=== PATIENT | female | born 1985 | race Caucasian/White ===

== ENCOUNTER 2023-08-14 16:03 | Outpatient (CLI) | payer BC, SELFPAY | END 2023-08-14 16:04 | disposition home or self-care (01) | PROVIDERS: PCP Family Medicine; Visit Provider Family Medicine | DX: Z00.00 Encounter for general adult medical examination without abnormal findings (principal); E66.9 Obesity, unspecified; R53.83 Other fatigue; K50.90 Crohn's disease, unspecified, without complications; F41.9 Anxiety disorder, unspecified; Z13.6 Encounter for screening for cardiovascular disorders | CPT/HCPCS: 80053; 80061; 82306; 84443 ==

== ENCOUNTER 2024-01-22 16:42 | Outpatient (CLI) | payer BC, SELFPAY ==
--- OUTSIDE RECORDS SUMMARY | 2024-01-22 16:44 | XMS_ITS | Encounter Summary ---
Author Organization [facility] er Address [address] [place] [address] Care Team Providers Care Groundman Name Role Phone Mary Tipton MD Primary Care Provider Reason for Visit * Reason Comments Med Refill Encounter Details Date Type Department Care Team (Late st Contact Info) Description 01/01/[address] [id number] Mary Tipton MD [address] [place] [address] [phone] Generalized anxiety disorder with panic attacks Social History Tobacco Use Types Packs/Day Years Used Date Smoking Tobacco: Former Cigarettes Q uit: 08/13/2016 Smokeless Tobacco: Never Alcohol Use Standard Drinks/Week Comments Yes 0 (1 standard drink = 0.6 oz pur e alcohol) alcoholic cider 1-2 x month Humiliation, Afraid, Rape, and Kick questionnair e Answer Date Recorded Within the last year, have y ou been afraid of your partner or ex-partner? No 06/26/2022 Within the last year, have y ou been humiliated or emotionally abused in other ways by your partner or ex-partner? No Within the last year, have y ou been kicked, hit, slapped, or otherwise physically hurt by your partner or ex-partner? No 06/26/2022 Within the last year, have y ou been raped or forced to have any kind of sexual activity by your partner or ex-partner? No 06/26/2022 Social Connection and Isolat ion Panel [NHANES] Answer Date Recorded In a typical week, how many times do you talk on the phone with family, friends, or neighbors? Twice a week 06/26/2022 How often do you get togethe r with friends or relatives? Twice a week 06/26/2022 How often do you attend chur ch or nondenominational services? More than 4 times per year 06/26/2022 Do you belong to any clubs o r organizations such as baptist groups, unions, fraternal or athletic groups, or school groups? No 06/26/2022 How often do you attend meet ings of the clubs or organizations you belong to? Never 06/26/2022 Are you , , di vorced, , never , or living with a partner? 06/26/2022 AUDIT-C Answer Date Recorded Q1: How often do you have a drink containing alc ohol? Monthly or less 06/26/2022 Q2: How many drinks containi ng alcohol do you have on a typical day when you are drinking? 3 or 4 06/26/2022 Q3: How often do you have si x or more drinks on one occasion? Less than monthly 06/26/2022 Overall Financial Resource Strain (CARDIA) Answe r Date Recorded How hard is it for you to pa y for the very basics like food, housing, medical care, and heating? Somewhat hard 06/26/2022 PHQ-2 Answer Date Recorded PHQ-9 Total Score 5 02/12/2023 [facility] Answer Date Recorded Do you feel stress - tense, restless, nervous, or anxious, or unable to sleep at night because your mind is troubled all the time - these days? Rather much 06/26/2022 Exercise Vital Sign Answer Date Recorde d On average, how many days pe r week do you engage in moderate to strenuous exercise (like a brisk walk)? 5 days 06/26/2022 On average, how many minutes do you engage in exercise at this level? 30 min 06/26/2022 Hunger Vital Sign Answer Date Recorded Within the past 12 months, y ou worried that your food would run out before you got the money to buy more. Never true 06/26/20 22 Within the past 12 months, t he food you bought just didn't last and you didn't have money to get more. Never true 06/26/2022 PRAPARE - Transportation Answer Date Re corded In the past 12 months, has l ack of transportation kept you from medical appointments or from getting medications? No 06/13 In the past 12 months, has l ack of transportation kept you from meetings, work, or from getting things needed for daily living? No 06/26/2022 Housing Stability Vital Sign Answer Bridger e Recorded In the last 12 months, was t here a time when you were not able to pay the mortgage or rent on time? Yes 06/26/2022 Number of Places Lived in the Last Year Not on f ile 06/26/2022 In the last 12 months, was t here a time when you did not have a steady place to sleep or slept in a mcfp (including now)? No 06/26/2022 Education Answer Date Recorded What is the highest level of school you have completed or the highest degree you have received? Associate degree: academic program 04/22/2021 Sex and Gender Information Value Date Recorded Sex Assigned at Female 10/03/2021 7:57 AM LICENSED MENTAL HEALTH COUNSELOR Gender Identity Female 10/03/2021 7:57 AM LICENSED MENTAL HEALTH COUNSELOR Sexual Orientation Straight 10/03/2021 7: 57 AM LICENSED MENTAL HEALTH COUNSELOR documented as of this encounter Miscellaneous Notes * Telephone Encounter - Neha Gill - 01/09/2024 10:08 AM CDT LM * Telephone Encounter - Neha Gill - 01/04/2024 12:39 PM CDT LM to schedule annual with labs prior * Telephone Encounter - Gretchen Banrhart MA - 01/03/2024 7:01 AM CDT Patient is due for annual exam appointment. PSR: Please contact patient to assist with scheduling. Upcoming appointment with provider: Visit date not found Last visit in provider department: 10/09/22 Last visit requested medication was discussed: 10/09/22, annual exam Last Rx: 07/20/23, #90, 0 refills Requested Prescriptions Pending Prescriptions Disp Refills escitalopram (LEXAPRO) 20 MG tablet [Pharmacy Med Name: ESCITALOPRAM 20 MG TABLET] 90 tablet 0 Sig: TAKE 1 TABLET (20 MG TOTAL) BY MOUTH ONE TIME EACH DAY Vitals: BP Readings from Last 2 Encounters: 03/06/23 124/79 12/12/22 130/83 Last Controlled Substance Agreement (CSA): Last Random Urine Drug Screen (RUDS): documented in this encounter Plan of Treatment Not on file documented as of this encounter Visit Diagnoses Diagnosis Generalized anxiety disorder with panic attacks documented in this encounter Care Teams Groundman Relationship Specialty Start Date End Date Mary Tipton MD [address] [place] [address] [address] [place] [phone] PCP - General 11/29/21 documented as of this encounter
--- OUTSIDE RECORDS SUMMARY | 2024-01-22 16:44 | XMS_ITS | Clinical Summary ---
Author Organization [facility] er Address [address] [place] [address] Care Team Providers Care Powder Worker Tnt Name Role Phone Mary Tipton MD Primary Care Provider Allergies Active Allergy Reactions Criticality Noted Date Comments Amoxicillin Hives High 11/11/2020 Penicillins Hives High 05/25/2016 Medications Medication Sig Dispensed Refills Start Date End Date Status loratadine (CLARITIN) 10 MG tabletIndicatio ns:Seasonal Allergic Rhinitis Take 1 tablet (10 mg total) by mouth if needed for allergies Seasonal allergies takes October through Jul Active levonorgestrel (Mirena, 52 MG,) 20 MCG/24HR IUDIndications: Contraceptive Therapy 1 Intra Uterine Device (20 mcg total) by Intrauterine route 1 (one) time Placed 07-17-2018 07/17/2018 Active omeprazole (PriLOSEC) [address] capsuleIndicati ons:Heartburn Take 1 capsule (40 mg total) by mouth 1 (one) time each day Do not crush or chew. 90 capsule 1 10/05/2021 Active Vitamin D, Cholecalciferol , 25 MCG (1000 UT) tablet Take 1,000 mg by mouth 1 (one) time each day 2,000 mgs per day Active mesalamine (LIALDA) 1.2 g EC tablet Take by mouth daily 05/02/2022 Active hydrOXYzine (ATARAX) 10 MG tabletIndicatio ns:Anxiety Take 1-2 tablets (10-20 mg total) by mouth every 8 (eight) hours if needed for anxiety 90 tablet 2 10/09/2022 Active fluticasone (Flonase Sensimist) 27.5 MCG/SPRAY nasal sprayIndication s:Chronic rhinitis,Chroni c allergic rhinitis Administer 2 sprays into each nostril 1 (one) time each day 10 g 5 12/12/2022 Active busPIRone (BUSPAR) 10 MG tabletIndicatio ns:Generalized anxiety disorder with panic attacks Take 1 tablet (10 mg total) by mouth 2 (two) times a day 180 tablet 07/20/2023 Active escitalopram (LEXAPRO) 20 MG tabletIndicatio ns:Generalized anxiety disorder with panic attacks TAKE 1 TABLET (20 MG TOTAL) BY MOUTH ONE TIME EACH DAY 30 tablet 01/03/2024 4 Active escitalopram (Lexapro) 20 MG tabletIndicatio ns:Generalized anxiety disorder with panic attacks Take 1 tablet (20 mg total) by mouth 1 (one) time each day 90 tablet 07/20/2023 4 Discontinued Active Problems Problem Noted Date Diagnosed Date Chronic rhinitis 12/12/2022 Last Assessment & Plan: Her case was discussed today. Her exam is consistent with UARS primarily related to her rhinitis and turbinate hypertrophy. Trial of Flonase for one month- prescription sent. RTC then. She will consider an allergy evaluation at that visit. Her questions were answered and she seemed very satisfied. Chronic allergic rhinitis 12/12/2022 Last Assessment & Plan: Her case was discussed today. For her dry flaky EAC skin, I suggested mineral oil twice weekly. She has had a nice response to Flonase and is glad about this. She has had a complicated history with allergy and wanted a referral to see the substation wireman. I thought that that was a good idea. RTC for any concerns Her questions were answered and she seemed very satisfied. Hypertrophy of nasal turbinates 12/12/2022 Snoring 12/12/2022 UARS (upper airway resistance syndrome) 12/13/19 23 Well adult exam 10/09/2022 Last Assessment & Plan: {Breast cancer screening: no family history, not yet indicated {Cervical cancer screening: normal co-test 2017, no history of abnormal results, next due 07/2023 {HIV Screening: {Lipid screening: consider due to elevated BMI {Statin use: {Labs: recent normal CMP for acute visit, consider [facility] next year for DM screening {Immunizations: Up-to-date Patient has Mirena IUD in place since July 17, 2018, discussed that these are approved for 8 years now. If she would like to pursue having it changed out at the 5-year christal like it was previously recommended, she can see gynecology in July 2023 and complete Pap at that time. Otherwise follow-up next August for cervical cancer screening and we will plan to leave the IUD in place. Generalized anxiety disorder with panic attacks 05/12/2022 Overview: Zoloft-incomplete treatment effect, loss of libido Last Assessment & Plan: Significant improvement of symptoms with addition of BuSpar 10 mg twice daily to Lexapro 20 mg daily. Therapy has been helpful and she has almost completed her course of this. Plan to continue current doses for the next year, assess again at next annual exam. Biliary dyskinesia 12/02/2020 Crohn's disease of large intestine without compl ication 11/04/2020 Overview: Seen through [facility] with colonoscopy on 10/15/2020. Ileitis, Crohn's disease of colon without complication, internal hemorrhoids. Recommend repeat colonoscopy in 2 years for Crohn's disease. Mallet finger of right hand 12/20/2016 Vitamin D deficiency 05/25/2016 Chronic low back pain 05/03/2013 Regional enteritis 09/14/2008 Overview: LW Modifier: biopsy, colonoscopy Dr Cody ROSEN Onset: 2007 ; Crohn's Disease NOS Resolved Problems Problem Noted Date Diagnosed Date Resolved Date Adjustment disorder with mix ed anxiety and depressed mood 07/27/2016 02/28/2022 Encounters Date Type Department Care Team Description 01/01/[address] [place] [address] Mary Tipton MD Generalized anxiety disorder with panic attacks from Last 3 Months Immunizations Name Administration Dates Next Due COVID-19, mRNA, LNP-S, PF, 100mcg/0.5mL dose Moderna 10/07/2020,09/09/2020 H1N1 All Forms 07/03/2009 INFLUENZA QUADRIVALENT MDV (IM) 06/05/2017 Influenza (IM) Preservative Free 013,06/17/2011,06/03/2010,2008,07/06/2008,06/08/2006 Influenza 6mo-64yrs Quad Pre servative Free IM 05/30/2022,04/15/2021,04/30/2020,2015,05/04/2015,06/01/2014,07/07/2013 Influenza Quadrivalent 6-35m o Preservative Free 07/07/2013 Influenza TIV (IM) 08/27/2012 Influenza, Unspecified 04/30/2020,2009,04/21/2009,2007,06/08/2006 MMR 04/01/1996 PPD Test 02/19/2008 Td 04/01/1996 Tdap 07/27/2016,06/08/2006 Family History Medical History Relation Comments Heart disease Father Other Father dissecting aorta Thyroid disease Father Heart disease Father's Brother 1 [place] and enlarg ed heart Heart disease Father's Brother 2 enlarged hear t, stent placement No Known Problems Father's Sister Alzheimer's disease Maternal Grandfather Dementia Maternal Grandfather No Known Problems Maternal Grandmother Arthritis Mother COPD Mother Depression Mother Hearing loss Mother deaf since 8 mon ths old Osteoporosis Mother Thyroid disease Mother Multiple sclerosis Mother's Brother No Known Problems Mother's Sister 1 Obesity Mother's Sister 2 Diabetes Paternal Grandfather type 2 Heart disease Paternal Grandfather TX x 2 Other Paternal Grandfather staph infec tion/leg amputated Diabetes Paternal Grandmother type 2 Thyroid disease Paternal Grandmother Depression Sister 1 Depression Sister 2 ADD / ADHD Son Anxiety disorder Son Depression Son Relation Status Comments Father Father's Brother 1 Father's Brother 2 Alive Father's Sister Alive Maternal Grandfather Maternal Grandmother Mother Alive Mother's Brother Alive Mother's Sister 1 Alive Mother's Sister 2 Alive Paternal Grandfather Paternal Grandmother Sister 1 Alive Sister 2 Alive Son Alive Social History Tobacco Use Types Packs/Day Years [...] 06/26/2022 How often do you attend chur or denominational services? More than 4 times per year 06/26/2022 Do you belong to any clubs o r organizations such as amish groups, unions, fraternal or athletic groups, or [...] Date Recorded PHQ-9 Total Score 5 02/12/2023 [facility] Occupat ional [facility] - Occupational Stress Questionnaire Answer Date Recorded [...] place to sleep or slept in a intermediate (including now)? No 06/26/2022 Education Answer Date Recorded What is the highest level of school you have completed or the highest degree you have received? Associate degree: academic program 04/22/2021 Sex and Gender Information Value Date Recorded Sex Assigned at Female 10/03/2021 7:57 AM CVT RN Gender Identity Female 10/03/2021 7:57 AM CVT RN Sexual Orientation Straight 10/03/2021 7: 57 AM CVT RN Last Filed Vital Signs Vital Sign Reading Time Taken Comments Blood Pressure 124/79 03/06/2023 3:06 PM CDT Pulse 85 03/06/2023 3:06 PM CDT Temperature 36.4 ??C (97.5 ??F) 03/06/2023 3:06 PM CD T Respiratory Rate 14 03/06/2023 3:06 PM CDT Oxygen Saturation 97% 03/06/2023 3:06 PM CDT Inhaled Oxygen Concentration - - Weight 118 kg (259 lb 11.2 oz) 03/06/2023 3:06 P M CDT Height 181 cm (5' 11.26) 10/18/2021 1:01 PM CVT RN Body Mass Index 35.96 10/18/2021 1:01 PM CVT RN Plan of Treatment Health Maintenance Due Date Last Done Comments CT Colonography 1983 FIT-DNA 1983 Mammogram 1983 Sigmoidoscopy 1983 iFOBT 1983 COVID-19 Vaccine ( season) 2023 10/07/2020, 09/09/2020 Pap Smear 07/17/2023 07/17/2018 Colonoscopy 01/15/2025 01/15/2023, 06/0 12/2022, 01/15/2023, Additional history exists Colorectal Cancer Screening 01/15/2025 DTaP,Tdap,and Td Vaccines (4 - Td or Tdap) 07/27/2026 07/27/2016, 06/08/2006, 04/01/1996 Influenza Vaccine Completed 08/14/2023, , 04/15/2021, Additional history exists HPV Vaccines Aged Out No longer eligi ble based on patient's age to complete this topic Pneumococcal Vaccine: Pediatrics (0 to 5 Years) and At-Risk Patients (6 to 64 Years) Aged Out No longer eligible based on patient's age to complete this topic Advance Directives For more information, please contact: [phone] * Full Code (Latest Code Status on File) Date Activated Date Inactivated Comments 01/04/2021 12:04 PM 01/04/2021 2:47 PM Care Teams Powder Worker Tnt Relationship Specialty Start Date End Date Mary Tipton MD [address] [place] [address] [phone] PCP - General 11/29/21
--- NOTE | 2024-01-22 17:00 | CRLHL7_ITS ---
For Patients: As a result of the Century Cures Act, medical imaging exams and procedure reports are released immediately into your electronic medical record. You may view this report before your referring provider. If you have questions, please contact your health care provider. BILATERAL SCREENING MAMMOGRAM WITH COMPUTER-AIDED DETECTION AND TOMOSYNTHESIS TECHNIQUE: CC and MLO views were obtained. These mammographic images have been obtained using full-field digital technique. These mammographic images were interpreted with the benefit of computer-aided detection. Breast Tomosynthesis was used in this interpretation. COMPARISON FILM: Baseline. FINDINGS: There are scattered areas of fibroglandular density. IMPRESSION: There is no radiographic evidence for malignancy. ASSESSMENT: BI-RADS Category 2: Benign RECOMMENDATION: Routine screening mammogram in 1 year. A lay language report of this examination will be provided to the patient. Lc Ontiveros M.D. Diagnostic Radiologist [email or web address] SP/Dictated by: Lc Ontiveros MD @ 01/28/2024 9:07:00 AM (Electronically Signed)
== END 2024-01-22 16:43 | disposition home or self-care (01) ==
LOC: MAMMO 16:42
PROVIDERS: PCP Family Medicine; Visit Provider Family Medicine
DX: Z12.31 Encounter for screening mammogram for malignant neoplasm of breast (principal)
CPT/HCPCS: 77063; 77067

== ENCOUNTER 2024-03-24 08:10 | Outpatient (CLI) | payer BC, SELFPAY ==
--- OUTSIDE RECORDS SUMMARY | 2024-03-28 01:19 | XMS_ITS | Encounter Summary ---
Author Organization [facility] er Address [address] [place] [address] Care Team Providers Care Early Breastfeeding Care Specialist Name Role Phone Mary Tipton MD Primary Care Provider Reason for Visit * Reason Comments Med Refill Encounter Details Date Type Department Care Team (Late st Contact Info) Description 01/01/[address] [id number] Mary Tipton MD [address] [place] [address] [phone] Generalized anxiety disorder with panic attacks Social [...] often do you attend chur ch or muslim services? More than 4 times per year 06/26/2022 Do you belong to any clubs o r organizations such as anabaptist groups, unions, fraternal or athletic groups, or [...] Date Recorded PHQ-9 Total Score 5 02/12/2023 [facility] Questionnaire Answer Date [...] place to sleep or slept in a custodial (including now)? No 06/26/2022 Education Answer Date Recorded What is the highest level of school you have completed or the highest degree you have received? Associate degree: academic program 04/22/2021 Sex and Gender Information Value Date Recorded Sex Assigned at Female 10/03/2021 7:57 AM LEASING MANAGER Gender Identity Female 10/03/2021 7:57 AM LEASING MANAGER Sexual Orientation Straight 10/03/2021 7: 57 AM LEASING MANAGER documented as of this encounter Miscellaneous Notes * Telephone Encounter - Neha Gill - 01/09/2024 10:08 AM CDT LM * Telephone Encounter - Neha Gill - 01/04/2024 12:39 PM CDT LM to schedule annual with labs prior * Telephone Encounter - Gretchen Barnhart MA - 01/03/2024 7:01 AM CDT Patient [...] attacks documented in this encounter Care Teams Early Breastfeeding Care Specialist Relationship Specialty Start Date End Date Mary Tipton MD [address] [place] [address] [address] [place] [phone] PCP - General 11/29/21 documented as of this encounter
--- OUTSIDE RECORDS SUMMARY | 2024-03-28 01:19 | XMS_ITS | Clinical Summary ---
Author Organization [facility] er Address [address] [place] [address] Care Team Providers Care Test Fixture Assembler Name Role Phone Mary Tipton MD Primary Care Provider Allergies Active Allergy Reactions Criticality Noted Date Comments Amoxicillin Hives High 11/11/2020 Penicillins Hives High 05/25/2016 Medications Medication Sig Dispensed Refills Start Date End Date Status loratadine (CLARITIN) 10 MG tabletIndications: Seasonal Allergic Rhinitis Take 1 tablet (10 mg total) by mouth if needed for allergies Seasonal allergies takes October through Jul Active levonorgestrel (Mirena, 52 MG,) 20 MCG/24HR IUDIndications:Con traceptive Therapy 1 Intra Uterine Device (20 mcg total) by Intrauterine route 1 (one) time Placed 07-17-2018 07/17/2018 Active omeprazole (PriLOSEC) [address] capsuleIndications :Heartburn Take 1 capsule (40 mg total) by mouth 1 (one) time each day Do not crush or chew. 90 capsule 1 10/05/2021 Active Vitamin D, Cholecalciferol, 25 MCG (1000 UT) tablet Take 1,000 mg by mouth 1 (one) time each day 2,000 mgs per day Active mesalamine (LIALDA) 1.2 g EC tablet Take by mouth daily 05/02/2022 Activ e hydrOXYzine (ATARAX) 10 MG tabletIndications: Anxiety Take 1-2 tablets (10-20 mg total) by mouth every 8 (eight) hours if needed for anxiety 90 tablet 2 10/09/2022 Active fluticasone (Flonase Sensimist) 27.5 MCG/SPRAY nasal sprayIndications:C hronic rhinitis,Chronic allergic rhinitis Administer 2 sprays into each nostril 1 (one) time each day 10 g 5 12/12/2022 Active busPIRone (BUSPAR) 10 MG tabletIndications: Generalized anxiety disorder with panic attacks Take 1 tablet (10 mg total) by mouth 2 (two) times a day 180 tablet 07/20/2023 Active escitalopram (LEXAPRO) 20 MG tabletIndications: Generalized anxiety disorder with panic attacks TAKE 1 TABLET (20 MG TOTAL) BY MOUTH ONE TIME EACH DAY 30 tablet 01/03/2024 Active Active Problems Problem Noted Date Diagnosed Date [...] and wanted a referral to see the study hall supervisor. I thought that that was a good [...] without compl ication 11/04/2020 Overview: Seen through [facility] with colonoscopy on 10/15/2020. Ileitis, Crohn's [...] Date Type Department Care Team Description 01/01/[address] [address] Mary Tipton MD Generalized anxiety disorder with [...] disease Father Heart disease Father's Brother 1 RI and enlarg ed heart Heart disease Father's [...] Grandfather type 2 Heart disease Paternal Grandfather RI x 2 Other Paternal Grandfather staph infec [...] How often do you attend chur or religion services? More than 4 times per year 06/26/2022 Do you belong to any clubs o r organizations such as hinduism groups, unions, fraternal or athletic groups, or [...] Date Recorded PHQ-9 Total Score 5 02/12/2023 [facility] of Occupat ional Health - Occupational Stress [...] place to sleep or slept in a halfway (including now)? No 06/26/2022 Education Answer Date Recorded What is the highest level of school you have completed or the highest degree you have received? Associate degree: academic program 04/22/2021 Sex and Gender Information Value Date Recorded Sex Assigned at Female 10/03/2021 7:57 AM CRIMPER ASSEMBLER Gender Identity Female 10/03/2021 7:57 AM CRIMPER ASSEMBLER Sexual Orientation Straight 10/03/2021 7: 57 AM CRIMPER ASSEMBLER Last Filed Vital Signs Vital Sign Reading [...] 181 cm (5' 11.26) 10/18/2021 1:01 PM CRIMPER ASSEMBLER Body Mass Index 35.96 10/18/2021 1:01 PM CRIMPER ASSEMBLER Plan of Treatment Health Maintenance Due Date Last Done Comments CT Colonography 1983 FIT-DNA 1983 Mammogram 1983 Sigmoidoscopy 1983 iFOBT 1983 COVID-19 Vaccine ( season) 2023 10/07/2020, 09/09/2020 Pap Smear 07/17/2023 07/17/2018 Influenza Vaccine (#1) 2024 , 05/30/2022, 04/15/2021, Additional history exists Colonoscopy 01/15/2025 01/15/2023, 06/0 12/2022, 01/15/2023, Additional history exists Colorectal Cancer Screening 01/15/2025 DTaP,Tdap,and Td Vaccines (4 - Td or Tdap) 07/27/2026 07/27/2016, 06/08/2006, 04/01/1996 HPV Vaccines Aged Out No longer eligi ble based on patient's age to complete this topic Pneumococcal Vaccine: Pediatrics (0 to 5 Years) and At-Risk Patients (6 to 64 Years) Aged Out No longer eligible based on patient's age to complete this topic Advance Directives For more information, please contact: [phone] * Full Code (Latest Code Status on File) Date Activated Date Inactivated Comments 01/04/2021 12:04 PM 01/04/2021 2:47 PM Care Teams Test Fixture Assembler Relationship Specialty Start Date End Date Mary Tipton MD [address] [place] [address] [phone] PCP - General 11/29/21
== END 2024-03-24 08:11 | disposition home or self-care (01) ==
LOC: NFLDREF 03-28 01:17
PROVIDERS: PCP Family Medicine; Referring Provider Family Medicine; Visit Provider Family Medicine
DX: E78.5 Hyperlipidemia, unspecified (principal)
CPT/HCPCS: 80061

== ENCOUNTER 2024-04-06 17:01 | Emergency (ER) | payer BC, SELFPAY ==
[2024-04-06] VITALS (7 sets, daily range): BP systolic 125–131; BP diastolic 85–89; PULSE 81–98; RESP 16–18; TEMP 37.1; O2SAT 96–117; BMI 34.3
--- NOTE | 2024-04-06 18:21 | CRLHL7_ITS ---
For Patients: As a result of the Century Cures Act, medical imaging exams and procedure reports are released immediately into your electronic medical record. You may view this report before your referring provider. If you have questions, please contact your health care provider. INDICATION: Chest pain. TECHNIQUE: Chest 1 views. COMPARISON: None. FINDINGS: Cardiovascular and mediastinum: Heart size and vasculature are normal in caliber and appearance. Lungs and pleural spaces: Lungs are clear. No sign of infiltrate or mass. No sign of pleural effusion. No pneumothorax. Bones and soft tissues: No significant findings. IMPRESSION: No acute or significant findings. Dictated by Javier Pace MD @ 04/06/2024 6:50:53 PM (Electronically Signed)
--- NOTE | 2024-04-06 18:23 | ED.GENADULT ---
HPI - General Adult General Chief complaint: Chest Pain Stated complaint: Chest pain, short of breath Time Seen by Provider: 04/06/24 17:02 History of Present Illness HPI narrative: A 38-year-old white female who has history of significant anxiety major depression presents when she woke up with chest pain this morning. Describes it as a pain across her chest or shoulders. Seemed to get better. Worse when she takes deep breath. She denies fever chills or cough. She has had no history of bleeding or clotting problems no cardiac history. She has lost about 20-30 lb recently. Intentionally. She does not feel short of breath, had no neck pain, no diaphoresis or nausea. She does note that when she presses on her chest it hurts more she has had no recent cough or flu illness Related Data Home Medications ?Medication ?Instructions ?Recorded ?Confirmed acetaminophen 325 mg tablet 325 mg PO ONCE PRN 04/14/23 03/27/24 (Masophen) loratadine 10 mg tablet (Claritin) 10 mg PO QDAY 04/14/23 04/06/24 mesalamine 1.2 gram tablet,delayed 4.8 g PO DAILY 07/26/23 04/06/24 release cholecalciferol (vitamin D3) 25 25 mcg PO QDAY 08/14/23 04/06/24 mcg (1,000 unit) capsule levonorgestrel 21 mcg/24 hr (up to 1 device intrauterine ONCE 10/03/23 04/06/24 8 years) 52 mg intrauterine device (Mirena) Previous Rx's ?Medication ?Instructions ?Recorded buspirone 10 mg tablet 20 mg (2 x 10 mg) PO BID #180 tabs 10/03/23 escitalopram oxalate 20 mg tablet 20 mg PO QDAY #90 tabs 10/03/23 (Lexapro) omeprazole 20 mg capsule,delayed 20 mg PO QDAY #90 caps 11/30/23 release Allergies Allergy/AdvReac Type Severity Reaction Status Date / Time amoxicillin Allergy Mild Rash Verified 04/06/24 17:38 Penicillins Allergy Mild Rash Verified 04/06/24 17:38 Review of Systems Status of ROS: Reports: 6 or more systems reviewed and unremarkable except as noted in History and below [facility] Medical History History of vitamin D deficiency ?Z86.39 - Personal history of other endocrine, nutritional and metabolic disease (ICD-10) UARS (upper airway resistance syndrome) ?G47.8 - Other sleep disorders (ICD-10) Chronic low back pain ?M54.50 - Low back pain, unspecified (ICD-10) ?G89.29 - Other chronic pain (ICD-10) Allergic rhinitis ?J30.9 - Allergic rhinitis, unspecified (ICD-10) Hx of major depression ?Z86.59 - Personal history of other mental and behavioral disorders (ICD-10) Prediabetes (08/2023) ?R73.03 - Prediabetes (ICD-10) Obesity (BMI 30-39.9) ?E66.9 - Obesity, unspecified (ICD-10) Chronic GERD ?K21.9 - Gastro-esophageal reflux disease without esophagitis (ICD-10) Anxiety ?F41.9 - Anxiety disorder, unspecified (ICD-10) Crohn's disease (2007) ?K50.90 - Crohn's disease, unspecified, without complications (ICD-10) Surgical History IUD (intrauterine device) in place ?Z97.5 - Presence of (intrauterine) contraceptive device (ICD-10) History of wisdom tooth extraction ?K08.409 - Partial loss of teeth, unspecified cause, unspecified class (ICD-10) History of umbilical hernia repair (01/04/21) ?Z98.890 - Other specified postprocedural states (ICD-10) ?Z87.19 - Personal history of other diseases of the digestive system (ICD-10) Epidermoid cyst of skin of inguinal region ?L72.0 - Epidermal cyst (ICD-10) History of cholecystectomy (01/04/21) ?Z90.49 - Acquired absence of other specified parts of digestive tract (ICD-10) Family History Father Thoracic aortic dissection, Onset Age: 51 Thyroid cancer, Onset Age: 51 Deafness Heart disease Mother Depression Anxiety Deafness COPD (chronic obstructive pulmonary disease) Osteoporosis Thyroid disease Sister Depression Anxiety Uncle Myocardial infarction, Onset Age: 50 Heart disease Son Depression Anxiety ADHD (attention deficit hyperactivity disorder) Maternal Grandfather Alzheimers disease Uncle Multiple sclerosis Paternal Grandmother Diabetes Thyroid disease Paternal Grandfather Heart disease Myocardial infarction Diabetes Social History Narrative: , paraprofessional elementary school, 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[employer], 1 child 2 step children Nonsmoker, quit 2019, history of 6 pack years Rare alcohol use exercise 3-5 / week running/ walking, weights Exercise daily by walking 30-60 minutes in addition to walking at work What is your current living situation?: I presently have a place to live Problems where you live: declined to answer In the past 12 months, utilities in danger of being shut off: no In past 12 months, lack of transportation kept you from medical appts, meetings, work, or getting things needed for daily living: no In the past 12 mos, have been you worried that your food would run out before you had money to buy more?: never true In the past 12 mos, the food you bought just didn't last and you didn't have money to buy more?: sometimes true Smoking Status: Never smoker How often do you have a drink containing alcohol: monthly or less AUDIT-C Alcohol total score: 1 Non-prescribed substance use: denies use How often does anyone, including family, friends and others, physically hurt you: never How often does anyone, including family, friends and others, insult or talk down to you: never How often does anyone, including family, friends and others, threaten you with harm: never How often does anyone, including family, friends and others, scream or curse at you: never Little interest or pleasure in doing things: not at all Feeling down, depressed, or hopeless: not at all Exam Narrative: Exam Narrative: Objective: Patient's vital signs are within normal limits other than her pulse is elevated slightly. She is alert orient x3 very pleasant Noncyanotic No accessory muscles of respiration use HEENT normal with normal symmetry no facial weakness Neck is supple Chest clear no rales or wheezing Heart rhythm without murmur Chest wall shows tenderness along the parasternal area of palpation bilaterally, she reports that similar pain when she has experience with movement or deep breathing Abdomen benign soft Extremities are no edema neurologic nonfocal Good peripheral perfusion noted Const: Vital Signs, click to edit/add: Vital Signs - 24 hr 04/06/24 17:33 04/06/24 18:44 04/06/24 18:48 Temperature 98.7 F Pulse Rate 90 Pulse Rate [Right Pulse Oximeter] 98 Respiratory Rate 18 Blood Pressure Blood Pressure [Ri ght Upper Arm] 125/89 Pulse Oximetry 117 H 96 96 Oxygen Delivery Me thod Room Air 04/06/24 19:00 04/06/24 19:02 04/06/24 19:17 Temperature Pulse Rate 86 88 81 Pulse Rate [Right Pulse Oximeter] Respiratory Rate Blood Pressure 128/85 131/86 Blood Pressure [Ri ght Upper Arm] Pulse Oximetry 97 98 99 Oxygen Delivery Me thod 04/06/24 19:18 Temperature Pulse Rate 84 Pulse Rate [Right Pulse Oximeter] Respiratory Rate 16 Blood Pressure 131/86 Blood Pressure [Ri ght Upper Arm] Pulse Oximetry 97 Oxygen Delivery Me thod Course Vital Signs Vital signs: Initial Vital Signs Temperature 98.7 F 04/06/24 17:33 Temperature Source Temporal Artery Scan 04/06/24 17:33 Pulse Rate 98 04/06/24 17:33 Pulse Rhythm Regular 04/06/24 17:33 Respiratory Rate 18 04/06/24 17:33 Blood Pressure 125/89 04/06/24 17:33 Blood Pressure Mean 101 04/06/24 17:33 Blood Pressure Position Sitting 04/06/24 17:33 Pulse Oximetry 117 H 04/06/24 17:33 Oxygen Delivery Method Room Air 04/06/24 17:33 Vital Signs Temperature 98.7 F 04/06/24 17:33 Pulse Rate 98 04/06/24 17:33 Respiratory Rate 18 04/06/24 17:33 Blood Pressure 125/89 04/06/24 17:33 Pulse Oximetry 117 H 04/06/24 17:33 Oxygen Delivery Method Room Air 04/06/24 17:33 Temperature 98.7 F 04/06/24 17:33 Pulse Rate 84 04/06/24 19:18 Respiratory Rate 16 04/06/24 19:18 Blood Pressure 131/86 04/06/24 19:18 Pulse Oximetry 97 04/06/24 19:18 Oxygen Delivery Method Room Air 04/06/24 17:33 Medications Administered Medications: Discontinued Medications Generic Name Dose Route Start Last Admin Trade Name Freq PRN Reason Stop Dose Admin Aspirin 324 mg 04/06/24 18:21 04/06/24 18:40 Aspirin 81 Mg Tab.Chew PO 04/06/24 18:22 324 mg ONCE ONE Administration Sodium Chloride 1,000 mls @ 6,000 mls/hr 04/06/24 18:30 04/06/24 19:16 0.9 % Sodium Chloride 1000 Ml IV 04/06/24 18:39 Infused .Q10M EMMY Infusion Ketorolac Tromethamine 30 mg 04/06/24 18:21 04/06/24 18:40 Ketorolac 30 Mg/Ml Inj IVP 04/06/24 18:22 30 mg ONCE ONE Administration Medical Decision Making MDM Narrative Medical decision making narrative: 38-year-old white female with anxiety depression with upper chest wall pain, palpable tenderness noted. Possible costochondritis. At this point I think however would be appropriate to get EKG troponin x-ray, will give her aspirin and some Toradol to see if that will help her symptoms. And check electrolytes and labs as well give her some IV fluid. Check a D-dimer as well. Disposition pending findings rule out acute coronary syndrome, PE, pneumothorax, chest wall inflammation. EKG was done that shows limited quality EKG and will be repeated shows sinus tachycardia with PACs there is limited R-wave progression anteriorly she has diffuse ST segment flattening. Addendum 7:18 p.m.: The patient's EKG by my read was repeated and shows normal sinus rhythm no acute ST T wave changes. Troponin is 0, CRP is minimally [place] [address], normal differential. ER profile is negative, D-dimer is negative. At this point she feels better I think we can have her use Aleve or Advil at home, light activity, diet as tolerated, recheck with regular doctor next 2-3 days, return sooner problems comes worsening. Her chest x-ray by my read looks unremarkable as well no pneumothorax, no infiltrate. Patient has negative cardiac workup negative D-dimer. I think this is likely chest wall pain and would respond anti-inflammatory medication. Return sooner problems or concerns otherwise follow up primary care as described above thanks Lab Data Labs: Lab Results 04/06/24 Range/Units 18:40 WBC 12.70 H (4.50-11.00) K/uL RBC 4.80 (4.00-5.20) m/uL Hgb 14.4 (12.0-16.0) gm/dL Hct 44.4 (33.0-51.0) % MCV 93 (80-100) fL MCH 30 (26-34) pg MCHC 32 (32-36) gm/dL RDW Coeff of Vaishali 12.7 (11.5-15.5) % Plt Count 403 (140-440) K/uL Neut % (Auto) 65.2 (42.0-72.0) % Lymph % (Auto) 25.0 (20-44) % [place] % (Auto) 5.7 (0.0-11.0) % Eos % (Auto) 3.5 (0.0-7.0) % Baso % (Auto) 0.4 (0.0-3.0) % Neut # (Auto) 8.30 H (1.7-7.0) K/uL Lymph # (Auto) 3.20 H (0.90-2.90) K/uL [place] # (Auto) 0.70 (0.00-0.90) K/UL Eos # (Auto) 0.40 (0.00-0.50) K/uL Baso # (Auto) 0.10 (0.00-0.30) K/uL Abs Immat Gran (auto) 0.00 (0.00-0.30) K/uL Imm/Tot Granulo (auto) 0.2 % D-Dimer Quant (PE/DVT) < 0.27 (0.00-0.50) ug/ml Sodium 140 (135-149) mmol/L Potassium 4.2 (3.6-5.1) mmol/L Chloride 105 (96-114) mmol/L Carbon Dioxide 27 (20-32) mmol/L Anion Gap 8 (7-15) mEq/L BUN 9 (5-24) mg/dL Creatinine 0.7 (0.5-1.5) mg/dL Estimated Creat Clear 119.40 Estimated GFR 112 ml/min Glucose 103 (60-115) mg/dL Calcium 9.4 (8.4-10.6) mg/dL Total Bilirubin 0.2 (0.1-1.5) mg/dL Direct Bilirubin 0.2 (0.0-0.5) mg/dL AST 17 (12-35) U/L ALT 14 (4-35) U/L Alkaline Phosphatase 65 (40-150) U/L C-Reactive Protein 1.4 H (0.5-1.0) mg/dL NT-Pro-B Natriuret Pep 132 pg/mL Total Protein 7.8 (6.0-8.3) g/dL Albumin 4.7 (3.3-5.0) g/dL POC Troponin I 0.00 L (0.01-0.04) ng/ml Discharge Plan Discharge Clinical Impression: Acute chest wall pain Patient Disposition: Home, Self-Care Condition: Stable Additional Instructions: Advil or Aleve daily for the next 3-5 days, light activity, recheck with regular doctor in 2-3 days, return to the ED problems or concerns. Activity Level: Light activity Discharge Diet: Regular Prescriptions: No Action cholecalciferol (vitamin D3) 25 mcg (1,000 unit) capsule 25 mcg PO QDAY Mirena 21 mcg/24 hours (8 yrs) 52 mg intrauterine device 1 device intrauterine ONCE Rx Instructions: as a single dose escitalopram oxalate [Lexapro] 20 mg tablet 20 mg PO QDAY Qty: 90 3RF buspirone 10 mg tablet 20 mg PO BID Qty: 180 3RF acetaminophen [Masophen] 325 mg tablet 325 mg PO ONCE PRN loratadine [Claritin] 10 mg tablet 10 mg PO QDAY mesalamine 1.2 gram tablet,delayed release (DR/EC) 4.8 g PO DAILY omeprazole 20 mg capsule,delayed release(DR/EC) 20 mg PO QDAY Qty: 90 1RF Follow Up/Referrals: Rebecca Salinas MD [Primary Care Provider] - Stand Alone Forms: artaculous Info Instructions
[2024-04-06] MEDS: 0.9 % SODIUM CHLORIDE 1000 ml 1,000 ML 6000 ML IV (18:39)
[2024-04-06] MEDS: ASPIRIN 81 MG TAB.CHEW 324 MG PO (18:40)
[2024-04-06] MEDS: KETOROLAC 30 MG/ML inj IVP (18:40)
--- OUTSIDE RECORDS SUMMARY | 2024-04-06 18:48 | XMS_ITS | Clinical Summary ---
Author Organization [facility] er Address [address] [place] [id number] Care Team Providers Care Mint Wafer Depositor Name Role Phone Mary Tipton MD Primary [...] and wanted a referral to see the project scientist. I thought that that was a good [...] without compl ication 11/04/2020 Overview: Seen through [facility] with colonoscopy on 10/15/2020. Ileitis, Crohn's disease of colon without complication, internal hemorrhoids. Recommend repeat colonoscopy in 2 years for Crohn's disease. Mallet finger of right hand 12/20/2016 Vitamin D deficiency 05/25/2016 Chronic low back pain 05/03/2013 Regional enteritis 09/14/2008 Overview: LW Modifier: biopsy, colonoscopy Dr Ross LW Onset: 2007 ; Crohn's Disease NOS Resolved Problems Problem Noted Date Diagnosed Date Resolved Date Adjustment disorder with mix ed anxiety and depressed mood 07/27/2016 02/28/2022 Immunizations Name Administration Dates Next Due COVID-19, mRNA, LNP-S, PF, 100mcg/0.5mL dose Moderna 10/07/2020,09/09/2020 H1N1 All Forms 07/03/2009 INFLUENZA QUADRIVALENT MDV (IM) 06/05/2017 Influenza 6mo-64yrs Quad Pre servative Free IM 05/30/2022,04/15/2021,04/30/2020,2015,05/04/2015,06/01/2014,07/07/2013 Influenza Quadrivalent 6-35m o Preservative Free 07/07/2013 Influenza, Split Virus, Triv alent, Preservative 08/27/2012 Influenza, Trivalent, PF 08/27/2012,11/0 12/2010,06/03/2010,2008,07/06/2008,06/08/2006 Influenza, Unspecified 04/30/2020,2009,04/21/2009,2007,06/08/2006 MMR 04/01/1996 PPD Test 02/19/2008 Td 04/01/1996 Tdap 07/27/2016,06/08/2006 Family History Medical History Relation Comments Heart disease Father Other Father dissecting aorta Thyroid disease Father Heart disease Father's Brother [address] and enlarg ed heart Heart disease Father's [...] Grandfather type 2 Heart disease Paternal Grandfather CT x 2 Other Paternal Grandfather staph infec [...] How often do you attend chur or amish services? More than 4 times per year 06/26/2022 Do you belong to any clubs o r organizations such as spiritism groups, unions, fraternal or athletic groups, or [...] Date Recorded PHQ-9 Total Score 5 02/12/2023 [facility] - Occupational Stress [...] place to sleep or slept in a long-term (including now)? No 06/26/2022 Education Answer Date Recorded What is the highest level of school you have completed or the highest degree you have received? Associate degree: academic program 04/22/2021 Sex and Gender Information Value Date Recorded Sex Assigned at Female 10/03/2021 7:57 AM SULKY DRIVER Gender Identity Female 10/03/2021 7:57 AM SULKY DRIVER Sexual Orientation Straight 10/03/2021 7: 57 AM SULKY DRIVER Last Filed Vital Signs Vital Sign Reading [...] 181 cm (5' 11.26) 10/18/2021 1:01 PM SULKY DRIVER Body Mass Index 35.96 10/18/2021 1:01 PM SULKY DRIVER Plan of Treatment Health Maintenance Due Date Last Done Comments CT Colonography 1983 FIT-DNA 1983 Mammogram 1983 Sigmoidoscopy 1983 iFOBT 1983 COVID-19 Vaccine ( season) 2023 10/07/2020, 09/09/2020 Pap Smear 07/17/2023 07/17/2018 Influenza Vaccine (#1) 2024 , 05/30/2022, 04/15/2021, Additional history exists Colonoscopy 01/15/2025 01/15/2023, 0612/2022, 01/15/2023, Additional history exists Colorectal Cancer Screening [...] Advance Directives For more information, please contact: [phone] * Full Code (Latest Code Status on File) Date Activated Date Inactivated Comments 01/04/2021 12:04 PM 01/04/2021 2:47 PM Care Teams Mint Wafer Depositor Relationship Specialty Start Date End Date Mary Tipton MD [address] [place] [address] [address] [place] [phone] PCP - General 11/29/21
--- OUTSIDE RECORDS SUMMARY | 2024-04-06 18:48 | XMS_ITS | Encounter Summary ---
Author Organization [facility] er Address [address] [place] [address] Care Team Providers Care Oil Dispatcher Name Role Phone Mary Tipton MD Primary Care Provider Reason for Visit * Reason Comments Med Refill Encounter Details Date Type Department Care Team (Late st Contact Info) Description 01/01/[address] [id number] Mary Tipton MD [address] [place] [phone] Generalized anxiety disorder with panic attacks Social [...] often do you attend chur ch or adventism services? More than 4 times per year 06/26/2022 Do you belong to any clubs o r organizations such as episcopalian groups, unions, fraternal or athletic groups, or [...] Date Recorded PHQ-9 Total Score 5 02/12/2023 [facility] Answer Date [...] Sex Assigned at Female 10/03/2021 7:57 AM SENIOR BUSINESS INTELLIGENCE ANALYST Gender Identity Female 10/03/2021 7:57 AM SENIOR BUSINESS INTELLIGENCE ANALYST Sexual Orientation Straight 10/03/2021 7: 57 AM SENIOR BUSINESS INTELLIGENCE ANALYST documented as of this encounter Miscellaneous Notes [...] attacks documented in this encounter Care Teams Oil Dispatcher Relationship Specialty Start Date End Date Mary Tipton MD [address] [place] [address] [address] [place] [id number] PCP - General 11/29/21 documented as of this encounter
[2024-04-06 18:49] LABS: Basophils Percent Auto 0.4 % (0.0-3.0); Eosinophils Percent Auto 3.5 % (0.0-7.0); Hematocrit 44.4 % (33.0-51.0); Hemoglobin* 14.4 gm/dL (12.0-16.0); Immature Granulocytes Pct Auto 0.2 %; Mean Corpuscular HGB Conc 32 gm/dL (32-36); Mean Corpuscular Hemoglobin 30 pg (26-34); Mean Corpuscular Volume 93 fL (80-100); Monocytes Percent Auto 5.7 % (0.0-11.0); Neutrophils Percent Auto 65.2 % (42.0-72.0); Platelet Count* 403 K/uL (140-440); RDW Coefficient of Variation % 12.7 % (11.5-15.5)
[2024-04-06 18:56] LABS: Slide Review Reflex No
[2024-04-06 19:02] LABS: Albumin* 4.7 g/dL (3.3-5.0); Chloride* 105 mmol/L (96-114)
[2024-04-06 19:03] LABS: Potassium* 4.2 mmol/L (3.6-5.1); Sodium* 140 mmol/L (135-149)
[2024-04-06 19:05] LABS: Creatinine* 0.7 mg/dL (0.5-1.5); Estimated Glomerular Filt Rate 112 ml/min
[2024-04-06 19:06] LABS: Alanine Aminotransferase* 14 U/L (4-35); Alkaline Phosphatase* 65 U/L (40-150); Anion Gap 8 mEq/L (7-15); Aspartate Amino Transferase* 17 U/L (12-35); Bilirubin Direct* 0.2 mg/dL (0.0-0.5); Bilirubin Total* 0.2 mg/dL (0.1-1.5); Blood Urea Nitrogen* 9 mg/dL (5-24); Carbon Dioxide* 27 mmol/L (20-32); Glucose* 103 mg/dL (60-115); Total Protein* 7.8 g/dL (6.0-8.3)
[2024-04-06 19:07] LABS: Calcium* 9.4 mg/dL (8.4-10.6)
[2024-04-06 19:09] LABS: C Reactive Protein* 1.4 mg/dL (0.5-1.0)
[2024-04-06 19:13] LABS: D Dimer Quantitative* < 0.27 ug/ml (0.00-0.50)
[2024-04-06 19:17] LABS: NT Pro B Type NatriureticPept* 132 pg/mL
== END 2024-04-06 19:28 | disposition home or self-care (01) ==
PROVIDERS: Emergency Provider Family Medicine; PCP Family Medicine
DX: R07.89 Other chest pain (principal)
CPT/HCPCS: 36415; 71045; 80048; 80076; 83880; 84484; 85025; 85379; 86140; 93005; 94761; 96374; 99284; A9270; J1885; J7030

== ENCOUNTER 2024-09-29 08:15 | Outpatient (CLI) | payer BC, SELFPAY | END 2024-09-29 08:16 | disposition home or self-care (01) | LOC: NFLDREF 10-01 06:43 | PROVIDERS: PCP Family Medicine; Referring Provider Family Medicine; Visit Provider Family Medicine | DX: E78.5 Hyperlipidemia, unspecified (principal); R73.03 Prediabetes; M81.0 Age-related osteoporosis without current pathological fracture | CPT/HCPCS: 80053; 80061; 82306 ==

== ENCOUNTER 2025-02-10 08:51 | Outpatient (CLI) | payer BC, SELFPAY ==
[2025-02-10 10:55] LABS: Chloride* 105 mmol/L (96-114)
[2025-02-10 10:56] LABS: Albumin* 4.1 g/dL (3.3-5.0); Potassium* 4.5 mmol/L (3.6-5.1); Sodium* 138 mmol/L (135-149)
[2025-02-10 10:58] LABS: Blood Urea Nitrogen* 12 mg/dL (5-24); Creatinine* 0.7 mg/dL (0.5-1.5); Estimated Glomerular Filt Rate 111 ml/min
[2025-02-10 10:59] LABS: Alanine Aminotransferase* 16 U/L (4-35); Alkaline Phosphatase* 56 U/L (40-150); Anion Gap 6 mEq/L (7-15); Aspartate Amino Transferase* 18 U/L (12-35); Bilirubin Total* 0.4 mg/dL (0.1-1.5); Calcium* 9.2 mg/dL (8.4-10.6); Carbon Dioxide* 27 mmol/L (20-32); Glucose* 102 mg/dL (60-115); Total Protein* 6.7 g/dL (6.0-8.3)
[2025-02-10 11:35] LABS: TSH With Reflex to FT4* 1.370 uIU/mL (0.270-4.200)
== END 2025-02-10 08:52 | disposition home or self-care (01) ==
PROVIDERS: PCP Family Medicine; Visit Provider Family Medicine
DX: R00.2 Palpitations (principal)
CPT/HCPCS: 80053; 84443

== ENCOUNTER 2025-02-16 14:20 | Outpatient (CLI) | payer BC, SELFPAY | END 2025-02-16 14:21 | disposition home or self-care (01) | LOC: RAD 14:20 | PROVIDERS: PCP Family Medicine; Visit Provider Family Medicine | DX: R00.2 Palpitations (principal); Z82.49 Family history of ischemic heart disease and other diseases of the circulatory system | CPT/HCPCS: 93306 ==

== ENCOUNTER 2025-03-19 17:05 | Outpatient (CLI) | payer BC, SELFPAY | END 2025-03-19 17:06 | disposition home or self-care (01) | PROVIDERS: PCP Family Medicine; Visit Provider Physician Assistant Surgical | DX: R35.89 Other polyuria (principal) | CPT/HCPCS: 87086; 87109 ==

== ENCOUNTER 2025-04-23 10:41 | Outpatient (CLI) | payer BC, SELFPAY ==
--- NOTE | 2025-04-23 10:45 | CRLHL7_ITS ---
For Patients: As a result of the Century Cures Act, medical imaging exams and procedure reports are released immediately into your electronic medical record. You may view this report before your referring provider. If you have questions, please contact your health care provider. INDICATION: BILATERAL SCREENING MAMMOGRAM, ASYMPTOMATIC 39 Y/O FEMALE COMPARISON: 01/22/2024 TECHNIQUE: Digital mammogram in CC and MLO projections including computer-aided detection (CAD) and tomosynthesis. BREAST COMPOSITION: The breasts are heterogeneously dense, which may obscure small masses. FINDINGS: No suspicious findings. ASSESSMENT: BI-RADS 1 Negative RECOMMENDATION: Annual screening mammogram. A lay language report of this examination will be provided to the patient. Dictated by: Lc Ontiveros MD @ 04/23/2025 13:34:04 (Electronically Signed)
== END 2025-04-23 10:42 | disposition home or self-care (01) ==
LOC: MAMMO 10:42
PROVIDERS: PCP Family Medicine; Visit Provider Family Medicine
DX: Z12.31 Encounter for screening mammogram for malignant neoplasm of breast (principal); R92.333 Mammographic heterogeneous density, bilateral breasts
CPT/HCPCS: 77063; 77067

== ENCOUNTER 2025-05-04 13:59 | Observation (INO) | payer BC, SELFPAY ==
--- OUTSIDE RECORDS SUMMARY | 2025-04-30 19:00 | XMS_ITS | Continuity of Care Document ---
Author Organization [facility] Address [address] [address] [place] [address] Phone Care Team Providers Care Sqe Name Role Phone Milly KAN, Wil Unavailable Unavailable Allergies, Adverse Reactions, Alerts Substance Reaction Status Criticality AMOXICILLIN TRIHYDRATE hives Active No In formation PENICILLIN G POTASSIUM rash Active No In formation Medications Medication Instructions Dosage Effective Dates (start - stop) Status Comments REMICADE Administer Remicade 5 mg/kg every 8 weeks infuse by IV route - Active Remicade Administer Remicade 5 mg/kg every 0, 2, and 6 weeks infuse by IV route - Active buspirone 10 mg tablet take 1 tablet by oral route 2 times every day 10 MG - Active Vitamin D3 50 mcg (2,000 unit) tablet take 1 tablet by oral route every day 1 tablet - Active Claritin 10 mg tablet take 2 tablet by o ral route every day 20 MG - Active Flonase Allergy Relief 50 mcg/actuation nasal spray,suspension inhale 2 spray by intranasal route every day in each nostril 100 MCG - Active omeprazole 40 mg capsule,delayed release take 1 Capsule by ORAL route every day before a meal 40 MG - Active Lexapro 10 mg tablet take 1 tablet by or al route every day 10 MG - Active hydroxyzine HCl 25 mg tablet take 2 Tablet by oral route every 9 hours as needed for pain as needed 50 MG - Active Procedures Procedure Date Remicade Per 10 Mg IV Infusion Up To 1 Hour Each Additional Hour Remicade Per 10 Mg IV Infusion Up To 1 Hour Each Additional Hour Immuniz Admin; 1/combo Vacc/to Hep A-hep B Vaccine Adult Dose 25 Remicade Per 10 Mg IV Infusion Up To 1 Hour Each Additional Hour Offic/outpt E&m Estab Moderate Routine Serum Collection Colonoscopy Flex; W/remov Les- Colonoscopy Flex; W/bx 1/mx Level Iv-surg Path Gross/micro Offic/outpt E&m Estab Mod-hi Routine Serum Collection Routine Serum Collection Established Level 3 Colonoscopy Flex; W/remov Les- Colonoscopy Flex; W/bx 1/mx Level Iv-surg Path Gross/micro Established Level 4 Established Level 3 Colonoscopy Flex; W/bx 1/mx Level Iv-surg Path Gross/micro Established Level 4 Ugi Endo; W/bx 1/mx Level Iv-surg Path Gross/micro Routine Serum Collection Stool Kits Given Offic/outpt E&m New Mod Sever 8 C-reactive Prot Vitamin D; 25 Hydroxy Comp Metabolic Panel Bld Ct; Hg/pltlt Ct Auto/compl 18 FilmArray GI Panel Offic/outpt E&m Estab Low-mod 1 G8447 Offic/outpt E&m Estab Mod-hi 2 10 G8447 Offic/outpt E&m Estab Low-mod 9 Routine Serum Collection G8447 Offic/outpt E&m Estab Low-mod 9 G8447 Offic/outpt E&m Estab Low-mod 9 G8447 Colonoscopy Flex; W/bx 1/mx Level Iv-surg Path Gross/micro 09 Advance Directives Directive Yes / No Effective Date File Name No Information Encounters Encounter Description Practice Location Reason(s) For Visit Diagnoses Date Provider Providers Copied on Encounter [facility], [address] [address], [place], [id number], tel:[phone] [facility] No Information 5 Milly De La Torre. [address], [id number], [place]. tel:[phone] [facility], [address] [address], [place], [id number], [place] tel:[phone] [facility] [place] Crohn's disease of small intestine with unspecified complications 5 Trell Diego. [address], [id number], [place]. tel:[phone] Referring Provider: Referral Self, USE FOR SELF REFERRALS. [facility], [address] [address], [place], [id number], [place] tel:[phone] [facility] [place] Crohn's disease of small intestine with unspecified complications 5 Vinicius Devries. [address], [id number], [place]. tel:[phone] [facility], [address] [address], [place], [id number], tel:[phone] [facility] [place] Crohn's disease of small intestine with unspecified complications 5 Dahlia Elliott. [address] [facility] [address], [place], [address], [place]. tel:[phone] Referring Provider: Referral Self, USE FOR SELF REFERRALS. [facility], [address] [address], [place], [id number], [place] tel:[phone] [facility] No Information 5 Vinicius Devries. [address] [facility] [address], [place], [address], [place]. tel:[phone] Referring Provider: Referral Self, USE FOR SELF REFERRALS. [facility], [address] [address], [place], [id number], [place] tel:[phone] [facility] [place] Crohn's disease of small intestine with unspecified complications 5 Vinicius Devries. [address] [facility], [facility] [address], [place], [address], [place]. tel:[phone] [facility], [address] [address], [place], [id number], [place] tel:[phone] [facility] [place] Crohn's disease of small intestine with unspecified complications 5 Pedrito Jackson. [address] [facility], [facility] [address], [place], [address], [place]. tel:[phone] Referring Provider: Referral Self, USE FOR SELF REFERRALS. [facility], [address] [address], [place], [id number], [place] tel:[phone] [facility] [place] Crohn's disease of small intestine with complication 5 Vinicius Devries. [address] [facility], [facility] [address], [place], [address], [place]. tel:[phone] Offic/outpt E&m Estab Moderate [facility], [address] [address], [place], [address], [place] tel:[phone] [facility] GI Symptoms or Concerns (chief complaint) Crohn's disease of small intestine with complication 5 Vinicius Devries. [address] [facility], [place] [address], [place], [address], [place]. tel:[phone] Referring Provider: Referral Self, USE FOR SELF REFERRALS. [facility], [address] [address], [place], [address], [place] tel:[phone] [facility] Colon adenoma 5 Milly De La Torre. [address] [facility], [facility] [address], [place], [address], [place]. tel:[phone] [facility], [address] [address], [place], [id number], [place] tel:[phone] [facility] GI Symptoms or Concerns (chief complaint) Crohn's disease of both small and large intestine without complications Adenomatous polyp of ascending colonPolyp of colonCrohn's disease of both small and large intestine without complications 5 Vinicius Devries. [address] [facility], [facility] [address], [place], [address], [place]. tel:[phone] Referring Provider: Referral Self, USE FOR SELF REFERRALS. [facility], [address] [address], [place], [address], [place] tel:[phone] [facility] Healthcare maintenance 4 Vinicius Devries. [address] [facility], [facility] [address], [place], [address], [place]. tel:[phone] Offic/outpt E&m Estab Mod-hi 4 [facility], [address] [address], [place], [id number], [place] tel:[phone] [facility] GI Symptoms or Concerns (chief complaint) Crohn's disease of both small and large intestine without complication 4 Vinicius Devries. [address] [facility], [facility] [address], [place], [address], [place]. tel:[phone] Referring Provider: Referral Self, USE FOR SELF REFERRALS. [facility], [address] [address], [place], [address], [place] tel:[phone] [facility] No Information 4 Rick Lau. [address] [facility], [facility] [address], [place], [place], [address], [place]. tel:[phone] [facility], [address] [address], [place], [address], [place] tel:[phone] [facility] Crohn's disease of large intestine without complications 3 Tracy Reyes. [address] [facility], [address], [place], [place], [address], [place]. tel:[phone] Referring Provider: Amy Contreras, [address] [facility] [address], [place], [address] . tel:[phone] Established Level 3 [facility], [address] [address], [place], [id number], [place] tel:[phone] [facility] GI Symptoms or Concerns (chief complaint) Crohn's disease of large intestine without complications 3 Tracy Reyes. [address] [facility], [facility] [address], [place], [address], [place]. tel:[phone] Referring Provider: Referral Self, USE FOR SELF REFERRALS. [facility], [address] [address], [place], [address], [place] tel:[phone] [facility] No Information 3 Modesta Sullivan. [address] [facility], [address], [place], [place], [address], [place]. tel:[phone] [facility], [address] [address], [place], [address], [place] tel:[phone] [facility] GI Symptoms or Concerns (chief complaint) Crohn's disease of large intestine without complications Polyp of colonCrohn's disease of large intestine without complications 3 Racquel Lala. [address], [id number], [place]. tel:[phone] Referring Provider: Referral Self, USE FOR SELF REFERRALS. Established Level 4 [facility], [address] [address], [place], [address], [place] tel:[phone] [facility] GI Symptoms or Concerns (chief complaint) Crohn's disease of large intestine without complications Gastrointesti nal food sensitivity 2 Modesta Sullivan. [address], [id number], [place]. tel:[phone] Referring Provider: Referral Self, USE FOR SELF REFERRALS. [facility], [address] [address], [place], [address], [place] tel:[phone] [facility] No Information 2 Rick Lau. [address], [id number], [place]. tel:[phone] Established Level 3 [facility], [address] [address], [place], [address], [place] tel:[phone] [facility] GI Symptoms or Concerns (chief complaint) Crohn's disease without complication, unspecified gastrointesti nal tract locationChron ic GERD 1 Jose Keys. [address], [id number], [place]. tel:[phone] Referring Provider: Referral Self, USE FOR SELF REFERRALS. [facility], [address] [address], [place], [address], [place] tel:[phone] [facility] IleitisCrohn' s disease of large intestine without complications Internal hemorrhoidsCr ohn's disease of large intestine without complications Other hemorrhoids 1 Nicola Whitley. [address], [id number], [place]. tel:[phone] Referring Provider: Lizzy Frey, [address] [place] [address], [address]. tel:[phone] Established Level 4 [facility], [address] [address], [place], [address], [place] tel:[phone] [facility] GI Symptoms or Concerns (chief complaint) Crohn's disease of colon without complicationU pper abdominal pain, unspecified 1 Zen Barrow. [address] [facility], [facility] [address], [place], [address], [place]. tel:[phone] Referring Provider: Referral Self, USE FOR SELF REFERRALS. [facility], [address] [address], [place], [address], [place] tel:[phone] [facility] Upper abdominal painCrohn's disease of colon without complicationU pper abdominal pain, unspecified 0 Trell Diego. [address], [id number], [place]. tel:[phone] Referring Provider: Referral Self, USE FOR SELF REFERRALS. [facility], [address] [address], [place], [address], [place] tel:[phone] [facility] No Information 0 Philly Betancur. [address] [facility], [facility] [address], [place], [address], [place]. tel:[phone] Offic/outpt E&m New Mod Sever [facility], [address] [address], [place], [id number], [place] tel:[phone] [facility] GI Symptoms or Concerns (chief complaint) Crohn's disease of large intestine with rectal bleedingDieta ry counseling and surveillance 8 No Information Referring Provider: Referral Self, USE FOR SELF REFERRALS. Offic/outpt E&m Estab Low-mod [facility], [address] [address], [place], [id number], [place] tel:[phone] [facility] annual f/u med refill crohns (chief complaint) Crohn's ColitisCrohn' s ColitisHemorr hoids Nos 1 No Information Referring Provider: Referral Self, USE FOR SELF REFERRALS. Offic/outpt E&m Estab Mod-hi 2 [facility], [address] [address], [place], [address], tel:[phone] [facility] Rectal bleeding (chief complaint) Crohn's ColitisCrohn' s ColitisHemorr hoids Nos 1201 0 No Information Referring Provider: Yamini Snow, [address], [place], [address]. tel:[phone] Offic/outpt E&m Estab Low-mod [facility], [address] [address], [place], [address], [place] tel:[phone] [facility] Crohns (chief complaint) Nausea (chief complaint) Heartburn (chief complaint) Fatigue (chief complaint) Crohn's ColitisCrohn' s ColitisNausea AloneOth Malaise & Fatigue 9 No Information Referring Provider: Yamini Snow, [address], [place], [address]. tel:[phone] Offic/outpt E&m Estab Low-mod [facility] [place] [facility], [address] [address], [place], [place], [address], [place] tel:[phone] [facility] Crohns (chief complaint) Crohn's ColitisCrohn' s Colitis 0200 9 No Information Referring Provider: Yamini Snow, [address], [place], [address]. tel:[phone] Offic/outpt E&m Estab Low-mod [facility], [address] [address], [facility] [place], [address], [place] tel:[phone] [facility] Crohns (chief complaint) Crohn's ColitisCrohn' s Colitis 0200 9 No Information Referring Provider: Yamini Snow, [address], [place], [address]. tel:[phone] [facility], [address] [address], [place], [address], [place] tel:[phone] [place] [facility] Colitis Unspecified/I BDCrohn's ColitisChange In Bowel Habits 9 Cody Beasley. [address] [facility], [address], [place], [place], [address], [place]. tel:[phone] Referring Provider: Yamini Conley MD M, [address] , [place], [address]. tel:[phone] Family History Family Member Type Diagnosis Age At Onset Sister Problem (finding) Pancreatitis Father Problem (finding) malignant neoplasm of t hyroid Son Problem (finding) asthma Sister Problem (finding) Cancer, unknown Mother Problem (finding) Thyroid disorder Father Problem (finding) Thyroid disorder Mother Problem (finding) gallbladder disease Sister Problem (finding) gallbladder disease Sister Problem (finding) Irritable bowel disease Sister Problem (finding) Cancer, kidney Immunizations Vaccine Date Status Comments Twinrix administered Note: [facility] bi-d irectional interface ; Source: Other Registry Hep A and Hep B administered Source: New Immunization Record Influenza, split virus, trivalent, injectable, preservative free administered Note: [facility] bi-direct ional interface ; Source: Other Registry Afluria Qd administered Note: [facility] bi-directional interface ; Source: Other Registry Afluria Qd administered Note: [facility] bi-directional interface ; Source: Other Registry Afluria Qd administered Note: [facility] bi-directional interface ; Source: Other Registry SARS-COV-2 (COVID-19) vaccin e, mRNA, spike protein, LNP, preservative free, 100 mcg/0.5mL dose or 50 mcg/0.25mL dose administered Note: [facility] bi-direct ional interface ; Source: Other Registry SARS-COV-2 (COVID-19) vaccin e, mRNA, spike protein, LNP, preservative free, 100 mcg/0.5mL dose or 50 mcg/0.25mL dose administered Note: [facility] bi-direct ional interface ; Source: Other Registry Influenza, Madin [place] Canin e Kidney, subunit, quadrivalent, injectable, preservative free administered Note: [facility] bi-directional interface ; Source: Other Registry Influenza, injectable, Madin [place] Canine Kidney, preservative free, quadrivalent administered Note: [facility] bi-direct ional interface ; Source: Other Registry Influenza administered Note: [facility] bi-d irectional interface ; Source: Other Registry tetanus toxoid, reduced diphtheria toxoid, and acellular pertussis vaccine, adsorbed administered Note: [facility] bi-direct ional interface ; Source: Other Registry Afluria Qd administered Note: M [facility] bi-directional interface ; Source: Other Registry Afluria Qd administered Note: M [facility] bi-directional interface ; Source: Other Registry Afluria Qd administered Note: M [facility] bi-directional interface ; Source: Other Registry Afluria Qd administered Note: M [facility] bi-directional interface ; Source: Other Registry Afluria Qd administered Note: M [facility] bi-directional interface ; Source: Other Registry Afluria Qd administered Note: M [facility] bi-directional interface ; Source: Other Registry Influenza, injectable,quadrivalent, preservative free, pediatric administered Note: [facility] bi-directional interface ; Source: Other Registry influenza virus vaccine, unspecified formulation administered Note: [facility] bi-di rectional interface ; Source: Other Registry Novel [id number], all formulations administered Note: [facility] bi-direct ional interface ; Source: Other Registry influenza virus vaccine, unspecified formulation administered Note: [facility] bi-di rectional interface ; Source: Other Registry influenza virus vaccine, unspecified formulation administered Note: [facility] bi-di rectional interface ; Source: Other Registry tetanus toxoid, reduced diphtheria toxoid, and acellular pertussis vaccine, adsorbed administered Note: [facility] bi-direct ional interface ; Source: Other Registry influenza virus vaccine, unspecified formulation administered Note: [facility] bi-di rectional interface ; Source: Other Registry tetanus and diphtheria toxoids, adsorbed, preservative free, for adult use (2 Lf of tetanus toxoid and 2 Lf of diphtheria toxoid) administered Note: M[facility] C bi- directional interface ; Source: Other Registry measles, mumps and rubella virus vaccine administered Note: [facility] bi-direct ional interface ; Source: Other Registry Payers Payer name Insurance type Covered alliance party ID Authorpatta allison(s) [employer] [facility] [id number] Social History Type Description Quantity Date Captured Comments Sex Female Smoking Status No Information Chief Complaint And Reason For Visit No Information Reason For Referral Reason For Referral No Information Plan Of Treatment Date Type Action Status Goal DEXA Bone Density Study. Due on due Goal Smoking status. Due on due Goal Dermatology - Skin Screening . Due on due Goal Colonoscopy. Due on 026 due Goal Hep A Vaccine (1st) due Goal Hep B Vaccine (1st) due Goal Cervical PAP smear. Due on due Goal Hep A Vaccine (2nd) due Goal Vitamin D, 25-Hydroxy. Due o n due Goal Hep B Vaccine (2nd) due Goal Prevnar 20. Due on due Goal Tdap. Due on due Goal Influenza. Due on due Goal Tdap. Due on due Goal Influenza. Due on due Goal Cervical PAP smear. Due on A due Goal Vitamin D, 25-Hydroxy. Due o n due Goal DEXA Bone Density Study. Due on due Goal Colonoscopy. Due on due Goal Dermatology - Skin Screening . Due on due Goal Prevnar 20. Due on due Goal Smoking status. Due on due Goal Tdap. Due on due Goal Influenza. Due on due Goal Vitamin D, 25-Hydroxy. Due o n due Goal Hep B Vaccine (1st) due Goal Hep A Vaccine (1st) due Goal DEXA Bone Density Study. Due on due Goal Colonoscopy. Due on due Goal Hep A Vaccine (2nd) due Goal Dermatology - Skin Screening . Due on due Goal Hep B Vaccine (2nd) due Goal Prevnar 20. Due on due Goal Smoking status. Due on due Goal Cervical PAP smear. Due on A due Goal Tdap. Due on due Goal Dermatology - Skin Screening . Due on due Goal Hep A Vaccine (2nd) due Goal Colonoscopy. Due on due Goal Hep A Vaccine (1st) due Goal Hep B Vaccine (2nd) due Goal Cervical PAP smear. Due on A due Goal Influenza. Due on due Goal Vitamin D, 25-Hydroxy. Due o n due Goal DEXA Bone Density Study. Due on due Goal Hep B Vaccine (1st) due Goal Prevnar 20. Due on due Goal Smoking status. Due on due Goal Prevnar 20. Due on due Goal Influenza. Due on due Goal Vitamin D, 25-Hydroxy. Due o n due Goal Colonoscopy. Due on due Goal Smoking status. Due on due Goal Cervical PAP smear. Due on due Goal Dermatology - Skin Screening . Due on due Goal Tdap. Due on due Goal DEXA Bone Density Study. Due on due Goal Dermatology - Skin Screening . Due on due Goal Cervical PAP smear. Due on due Goal Colonoscopy. Due on due Goal Prevnar 20. Due on due Goal Influenza. Due on due Goal Vitamin D, 25-Hydroxy. Due o n due Goal DEXA Bone Density Study. Due on due Goal Smoking status. Due on due Goal Tdap. Due on due Goal Smoking status. Due on due Goal Colonoscopy. Due on due Goal Dermatology - Skin Screening . Due on due Goal DEXA Bone Density Study. Due on due Goal Tdap. Due on due Goal Cervical PAP smear. Due on due Goal Vitamin D, 25-Hydroxy. Due o n due Goal Influenza. Due on due Goal Prevnar 20. Due on due Goal DEXA Bone Density Study. Due on due Goal Cervical PAP smear. Due on due Goal Influenza. Due on due Goal Colonoscopy. Due on due Goal Tdap. Due on due Goal Smoking status. Due on due Goal Dermatology - Skin Screening . Due on due Goal Prevnar 20. Due on due Goal Vitamin D, 25-Hydroxy. Due o n due Goal Tdap. Due on due Goal Smoking status. Due on due Goal Dermatology - Skin Screening . Due on due Goal Prevnar 20. Due on due Goal Influenza. Due on due Goal Cervical PAP smear. Due on due Goal Vitamin D, 25-Hydroxy. Due o n due Goal DEXA Bone Density Study. Due on due Goal Cervical PAP smear. Due on N due Goal Dermatology - Skin Screening . Due on due Goal Influenza. Due on due Goal Smoking status. Due on due Goal DEXA Bone Density Study. Due on due Goal Prevnar 20. Due on due Goal Vitamin D, 25-Hydroxy. Due o n due Goal Tdap. Due on due Goal Cervical PAP smear. Due on N due Goal Dermatology - Skin Screening . Due on due Goal Influenza. Due on due Goal Smoking status. Due on due Goal DEXA Bone Density Study. Due on due Goal Prevnar 20. Due on due Goal Vitamin D, 25-Hydroxy. Due o n due Goal Tdap. Due on due Goal Lifestyle education regardin g diet completed Referral Ordered: Colonoscopy With EMR Appointment date/timeframe: 05/01/2025 ordered Referral Ordered: MRI Enterography With Contrast Per Radiology Appointment date/timeframe: 08/04/2024 ordered Referral Ordered: BMP Appointment date/timeframe: First Available ordered Referral Ordered: Vitamin B12 Appointment date/timeframe: 06/20/2022 ordered Referral Ordered: Vitamin A And E Appointment date/timeframe: 06/20/2022 ordered Referral Ordered: CBC w/diff Appointment date/timeframe: 06/20/2022 ordered Referral Ordered: CMP Appointment date/timeframe: 06/20/2022 ordered Referral Ordered: Vitamin D, 25-Hydroxy Appointment date/timeframe: 06/20/2022 ordered Referral Ordered: C-Reactive Protein Appointment date/timeframe: 06/20/2022 ordered Referral Ordered: Colonoscopy Appointment date/timeframe: 10/15/2020 ordered Appointment Rashmi Gilmore BOOKED Appointment Rashmi Gilmore BOOKED History Of Present Illness Encounter Date Complaint History Of Prese nt Illness GI Symptoms or Concerns Rashmi ricci is a pleasant 39-year-old female presenting for follow-up of ileocolonic Crohn's disease. Rashmi was initially diagnosed with Crohn's disease in 2008 and started on Pentasa at that time. She was later transitioned to Lialda with good response. Previously underwent colonoscopy in January 2023 which showed evidence of inflammation of the terminal ileum with correlating pathology. Remainder of the colon appeared unremarkable endoscopically and histologically well has previously had evidence of colonic inflammatory changes in 2020.She recently underwent repeat colonoscopy on 01/23/2025 with aphthous ulcers noted in the terminal ileum and evidence of mildly active ileitis. Follow-up MR enterography showed mild chronic appearing changes in the distal terminal ileum but did not show evidence of more proximal disease.Overall, symptoms been stable although she does report mildly looser stools in the past several weeks. She denies any melena, hematochezia, abdominal pain, tenesmus, or significant upper GI symptoms. GI Symptoms or Concerns GI Symptoms or Concerns Rashmi ricci is a pleasant 38-year-old female presenting for follow-up of ileocolonic Crohn's disease. Initially diagnosed in 2008 and was started on Pentasa at that time and ultimately switched to Lialda which is continued with excellent response. No prior biologic therapy. Most recent colonoscopy was in January 2023 showed endoscopic evidence of inflammation of the terminal ileum with correlating pathology. Remainder of the colon was unremarkable endoscopically and histologically.She reports an episode of food poisoning 1 month ago that lasted for a week and associated with significant emesis and diarrhea. This is since resolved and she notes that she is now feeling significantly better than her previous baseline. She is now able to eat foods such as apples she was unable to tolerate in the past. Of note, she does have specific foods that she is not able to tolerate resulting in mild abdominal pain and worsening loose stools which will promptly resolve spontaneously. She has lost 20 pounds over the past 6 months intentionally through diet and exercise and plans to lose additional weight. Recently diagnosed with sinus infection and completed course of antibiotics within the past month. She denies any melena, hematochezia, vision changes, joint pains, or rashes. GI Symptoms or Concerns This was a virtual visit with Ms. Rashmi Gilmore. She consented to proceed with the virtual visit. She was by herself for the visit. We spoke for 8 minutes and I spent additional 16 minutes reviewing her chart and coordinating her care for a total encounter time of 24 minutes. This is a follow-up in regards to Crohn's colitis. This was initially diagnosed in 2008. She was started on Pentasa and then ultimately switched to Lialda and she is done excellent clinically. She had her most recent surveillance colonoscopy in January 2023 which showed a normal colon but she had mild ileitis.She says that she is continuing to do great. She has 1 or 2 bowel movements every day. She had cholecystectomy in 2021. She does not smoke. She drinks alcohol rarely. She does not do drugs. They recently moved to [facility]. GI Symptoms or Concerns GI Symptoms or Concerns This is a 36-year-old female seen for virtual visit followup of her Crohn's colitis that she has had since 2008. This is my first visit with her. She says that Crohn's has not been active while on Lialda. She did have her gallbladder out last year and has had some food sensitivity since then. Specifically, she says that she cannot eat any fruits or vegetables and has to avoid fatty foods as well. She wonders if she needs to see a dietitian and has started taking a multivitamin.Last colonoscopy in October 2020 showed minimal ileitis and mild colitis in the sigmoid and rectum, biopsies showed mildly active ileitis and chronic colitis in the sigmoid and rectum without any dysplasia.She also has heartburn, remains on omeprazole. She recently changed her anxiety medication and has been trying to do with a more healthy lifestyle, but has difficulty eating a varied diet. GI Symptoms or Concerns The colton ent is being seen today in a virtual visit appointment for Crohn's disease followup. She was by herself and gave consent.The patient had Crohn's disease and is on mesalamine 4.8 g a day. She currently feels great and has no complaints. She has 1 to 2 stools a day, mostly semi-formed. There is no blood in the stools or black stools. She does not have any abdominal pain currently. She did have her gallbladder taken out for dysfunctioning gallbladder she tells me and ever since then she feels absolutely great and has no complaints of abdominal pain. No complaints of nausea or vomiting. She does have a history of heartburn and acid reflux for which she takes omeprazole and that is keeping it under good control. She denies any complaints of swallowing or eating, nausea or vomiting, or weight loss. Her bowel movements since her gallbladder surgery have also been somewhat erratic at times with loose stools intermittently. Overall, she is quite happy with how she is feeli GI Symptoms or Concerns Rashmi Barnes is a 34-year-old woman with a history of Crohn's colitis, who presents to reestablish care at [facility] after moving back to the area. She also specifically would like to discuss recent right upper quadrant pain which began around June 2020 and has so far not found a cause on multiple tests. This visit was conducted as a virtual visit.Regarding Crohn's history, Rashmi was initially diagnosed with Crohn's disease on colonoscopy in 2008, which showed patchy colitis throughout the colon consistent with Crohn's disease. Her terminal ileum was examined and appeared normal. She has been on mesalamine ever since. She was initially treated with Pentasa, but then was switched to a generic medication a couple of years ago. Her symptoms have always seemed to respond well to mesalamine. She most recently was following at the [facility] I believe and she reports her last colonoscopy was in 2017 and apparently showed good response to treatment. Prior to that, she GI Symptoms or Concerns Rashmi is a 32-year-old female with a history of Crohn's disease who presents to the clinic for reestablishment of care as well as for evaluation of abdominal pain, cramping, and boody diarrhea for 2 weeks.She was last seen at [facility] in 2010 but had to switch providers due to insurance coverage. Over the last 7 years she has been managed at [facility] in [place]. Since she was last seen here, she reports her symptoms have been well-controlled except for the past 2 weeks. Reports RUQ pain about once per year that was worked up at [facility] with no definitive diagnosis, negative ultrasound and nuclear medicine study. She denies any other chronic illnesses and is not on any other medications. Her last colonoscopy was 2-3 years ago which she recalls was normal with no active disease.She has been on Pentasa 4g daily since diagnosis, but stopped this medication at the beginning of August 2017 due to insurance changes with the new year. She had been asymptomatic until about 2 weeks ago when she started having loose to watery stools. She reports an average of 5 stools per day since then and denies days without a bowel movement. This past Sunday, she reports having to go to the bathroom 20-30 times. Has seen some rust-colored blood and mucous in her stools in the past few days. Has noticed bright red blood on the toilet paper as well, and has a history of hemorroids. Associated symptoms include lower abdominal pain and cramping. She states these symptoms are very similar to symptoms when she was first diagnosed. In the past 2 weeks she has lost 10 pounds. She has noticed that her symptoms are worse after eating, and so she has decreased her food intake. In the past 2 days she has only been drinking fluids. 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 She denies recent travel. Denies recent antibiotic use. Denies oral ulcers, arthralgias, eye symptoms, and rash. Denies NSAID use. She does not smoke or use recreational drugs. She drinks alcohol occasionally. Functional Status Date Functional Assessmen t No Information Instructions Date Instruction Additional Infor myesha IBD Folder Related to Crohn 's disease of small intestine with complication IBD Health Maintenance Related t o Crohn's disease of small intestine with complication Colon Cancer Prevention Related to Crohn's disease of both small and large intestine without complications Colon Polyps Related to Crohn 's disease of both small and large intestine without complications IBD Health Maintenance Related t o Crohn's disease of both small and large intestine without complication Colon Cancer Prevention Related to Crohn's disease of large intestine without complications Colon Polyps Related to Crohn 's disease of large intestine without complications IBD Folder Related to Crohn 's disease of large intestine without complications We will refill Liald a and omeprazole, recommend she see her dietitian, and take daily smoothies with some veggies and fruits, will check some additional laboratories if she is overdue. Otherwise, follow up in the clinic in 1 year. Related to Crohn's disease of large intestine without complications 1. Continue current medications.2. Follow up in 1 year or earlier if there are new complaints. Related to Crohn's disease without complication, unspecified gastrointestinal tract location IBD Folder Related to Crohn 's disease without complication, unspecified gastrointestinal tract location Gastroesophageal Reflux Disease Related to Chronic GERD High Fiber Diet Related to Crohn 's disease of large intestine without complications Hemorrhoids Related to Crohn 's disease of large intestine without complications 1. Lab work today. 2 . Stool study to ensure no infection. 3. Start back on Pentasa 4 tablets twice a day. 4. Pending lab work and stool study, as well response of symptoms, consider short course of prednisone. 5. Follow up in IBD clinic in 3 months. Related to Crohn's disease of large intestine with rectal bleeding Lifestyle education regarding di et Related to Dietary counseling and surveillance Assessments Type Assessment Date No Information Patient Care Teams Name Effective Dates (start - stop) Status Members No Information
--- OUTSIDE RECORDS SUMMARY | 2025-05-04 14:02 | XMS_ITS | Clinical Summary ---
Author Organization [facility] Address [address] [place] [id number] Care Team Providers Care Sandblast Or Shotblast Equipment Tender Name Role Phone Suyapa Gee MD Primary Care Provider Allergies Active Allergy Reactions Criticality Noted Date Comments Amoxicillin Hives 05/25/2016 Penicillins Hives 05/25/2016 Medications LORazepam (ATIVAN) 1 mg tabletIndication s:Anxiety Take 0.5-2 tablets by mouth every 6 hours if needed for Anxiety. 30 tablet 6 Active mesalamine (PENTASA) 500 mg Extended-release capsuleIndicatio ns:Crohn's disease of large intestine without complication (HC) Take 2 Caps by mouth 4 times daily. 480 Cap 8 Active famotidine (PEPCID) 20 mg tabletIndication s:Upper abdominal pain Take 1 tablet by mouth 2 times daily if needed for GI Upset. 30 tablet 0 Active omeprazole (PRILOSEC) 40 mg Delayed-Release capsuleIndicatio ns:Upper abdominal pain Take 1 capsule by mouth once daily. 14 capsule 0 Active sucralfate (CARAFATE) 100 mg/mL suspensionIndica tions:Upper abdominal pain Take 10 mL by mouth 4 times daily if needed for GI Upset. Take on empty stomach. 200 mL 0 Active busPIRone 10 mg cap Take 10 mg by mouth two times daily. Active cholecalciferol (VITAMIN D3) 1,000 unit capsule Take 1,000 units by mouth once daily. Active escitalopram oxalate (Lexapro) 20 mg tablet Take 20 mg by mouth once daily. Active infliximab (REMICADE IV) Inject intravenous. Active levonorgestrel (MIRENA) 21 mcg/24 hours (8 yrs) 52 mg intrauterine device (IUD) Inject 1 Device intrauterine one time. Active Active Problems Problem Noted Date Diagnosed Date Mallet finger of right hand 12/20/2016 Panic attacks 08/24/2016 Overview (08/24/2016): First panic attack in summer, four more since that time. Adjustment disorder with mixed anxiety and depre ssed mood 07/27/2016 Crohn's disease of large intestine without compl ication 05/25/2016 Vitamin D deficiency 05/25/2016 Encounters Date Type Department Care Team Description 05/04/2025 Nurse Triage [facility] [address] [place] [address] Suyapa Gee MD Chest Pain 05/04/2025 Telephone [facility] [address] [place] [address] Suyapa Gee MD Error-please disregard (error) 05/01/2025 11:21 AM CDT Anesthesia Event [facility] [address] [place] [address] Theresa Jean-Baptiste MD 05/01/2025 11:05 AM CDT - 05/01/2025 12:05 PM CDT Surgery [facility] [address] [place] [address] Wil Odom MD COLONOSCOPY WITH ENDOSCOPIC MUCOSAL RESECTION 05/01/2025 9:32 AM CDT - 05/01/2025 12:40 PM CDT Hospital Encounter [facility] [address] [place] [address] Wil Odmo MD Discharge Disposition: Home Self Care 04/30/2025 Travel 02/16/2025 3:00 PM CDT Ancillary Procedure [facility] [address] [place] [address] from Last 3 Months Immunizations Immunization Administration Dates Next Due Influenza, IIV4 05/25/2016 Tdap 07/27/2016 Family History Medical History Relation Name Comments Heart Disease Father Enlarged heart , disecting aorta Thyroid cancer Father Other Mother Macular Degener ation, cataracts Psychiatric illness Other Depressi o and Anxiety heavily on Mom's side Diabetes Paternal Grandfather Heart attack Paternal Grandfather [place] x2 Diabetes Paternal Grandmother Thyroid Disease Paternal Grandmother Heart attack Paternal Uncle 1 [place], Enlarge d Heart Heart Disease Paternal Uncle 2 Aortic is sues, enlarged heart Heart Disease Sister PVCs Other Sister IBS Relation Name Status Comments Father Mother Other Paternal Grandfather Paternal Grandmother Paternal Uncle 1 Paternal Uncle 2 Sister Social History Tobacco Use Types Packs/Day Years Used Date Smoking Tobacco: Former Cigarettes 0.3 8 0 04/13/2008 - 04/13/2016 Smokeless Tobacco: Never Tobacco Cessation:Counseling Given: Yes Alcohol Use Standard Drinks/Week Comments Yes 0 (1 standard drink = 0.6 oz pur e alcohol) Few times a year Comments No Sex and Gender Information Value Date Recorded Sex Assigned at Not on file Legal Sex Female 10:45 AM CDT Gender Identity Not on file Sexual Orientation Not on file 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 Last Filed Vital Signs Vital Sign Reading Time Taken Comments Blood Pressure 111/53 05/01/2025 12:25 PM CDT Pulse 44 05/01/2025 12:25 PM CDT Temperature 36.7 C (98 F) 05/01/2025 11:55 AM CDT Respiratory Rate 16 05/01/2025 12:25 PM CDT Oxygen Saturation 100% 05/01/2025 12:25 PM CDT Inhaled Oxygen Concentration - - Weight 117.9 kg (260 lb) 05/01/2025 10:25 AM CDT Height 180.3 cm (5' 11) 05/01/2025 10:25 AM CDT Body Mass Index 36.26 05/01/2025 10:25 AM CDT Plan of Treatment Health Maintenance Due Date Last Done Comments HIV for age 15-65 1998 Hepatitis C screening for age 18-79 2001 Hepatitis B series for 19+ (1 of 3 - 19+ 3-dose series) 2002 HPV series for age 9-45 (1 - Risk 3-dose SCDM series) 2010 Depression screening for age 12+ 08/24/2017 08/24/2016, 07/27/2016 BMI (ht and wt on same day) for age 18+ 02/12/2018 02/12/2017, 11/23/2016, 07/27/2016, Additional history exists COVID-19 vaccine series (3 - Moderna risk series) 11/04/2020 10/07/2020, 09/09/2020 Influenza Vaccine (#1) 2025 05/25/2016 Tetanus booster 07/27/2026 07/27/2016 Pap test for age 21-65 10/03/2026 , 10/03/2023, 08/12/2015 (Completed outside of [facility]) RSV vaccine for adults or (1 - 1-dose 75+ series) 2058 Pneumococcal series for age 6-49 Aged Out No longer eligible based on patient's age to complete this topic Procedures Procedure Name Priority Date/Time Associated Diagnosis Comments COLONOSCOPY 05/01/2025 11:13 AM CDT URINE Preop 05/01/2025 10:12 AM CDT ECHO TTE COMPLETE WO CONTRAST Routine 02/16/2025 2:50 PM CDT Palpitations HPV HIGH RISK Routine 10/03/2023 7:52 AM QA TEST LEAD from Last 3 Months or Most Recently Relevant to Health Maintenance Results * COLONOSCOPY (05/01/2025 11:13 AM CDT) 05/01/2025 11:1 3 AM CDT Narrative Transcriptions Wil Odom MD - 05/01/2025 11:[address] [facility] Patient Name: Cheryl Srinivasan Procedure Date: 05/01/2025 Gender: Female Date of : 1985 Admit Type: Ambulatory Procedure: Colonoscopy Proceduralist: Wil Trujillo MD - [facility] Referring MD: Wil Trujillo MD Indications/Pre-Op Diagnosis: Therapeutic procedure for known colonadenoma Medications: Monitored Anesthesia Care Procedure Description: The patient had risks, benefits and alternatives explained to andgave informed consent. The patient had a stable cardiopulmonary status and judged an adequate candidate for sedation. The endoscope [id number] was passed through the anus andadvanced to the terminal ileum. The colonoscopy was performed withoutdifficulty. The patient tolerated the procedure well. The quality of the bowel preparation was fair. Complications: No immediate complications. Estimated Blood Loss & Specimen: Estimated blood loss: none. Specimen collected: Yes and sent to Laboratory Findings: A 30 mm polyp was found in the ascending colon. The polyp wassessile. Preparations were made for mucosal resection. EverLift was injectedto raise the lesion. Snare mucosal resection was performed. Resectionand retrieval were complete. Resected tissue margins were examined andclear of polyp tissue. To prevent bleeding after mucosal resection, one hemostatic clip was successfully placed. There was no bleedingduring, or at the end, of the procedure. Impressions/Post-Op Diagnosis: - Preparation of the colon was fair. - One 30 mm polyp in the ascending colon, removed with mucosal resection. Resected and retrieved. Clip was placed. - Mucosal resection was performed. Resection and retrieval werecomplete. Recommendation: - Discharge patient to home. - Resume previous diet. - Continue present medications. - Await pathology results. - Repeat colonoscopy for surveillance based on pathology results. Wil Trujillo MD 05/01/2025 11:57:15 AM This report has been signed electronically. Note Initiated On: 05/01/2025 11:13 AM Wil Trujillo MD PROCEDURE ORD Fin al Result * Urine (05/01/2025 10:12 AM CDT) ,URIN E Negative Negative 05/01/2025 10:44 AM CDT [facility] Urine URINE SPECIMEN / Unknown Non-Blood / Unknown 05/01/2025 10:12 AM CDT 05/01/2025 10:28 AM CDT Wil Trujillo MD URINE Fin al Result [facility] [address] [place] [address], * ECHO TTE COMPLETE WO CONTRAST (02/16/2025 2:50 PM CDT) AORTIC VALVE MEAN PG 3 mmHg EJECTION FRACTION 61 % LVEDD 5.1 cm EJECTION FRACTION 55 - 60% Anatomical Region Laterality Modality Ultrasound 02/16/2025 2:37 PM CDT Narrative 02/16/2025 3:09 PM CDT ECHOCARDIOGRAM CHERYL SRINIVASAN : 1985 39 years Study Date: 02/16/2025 2:37:10 PM Gender: F BP: 126/85 mmHg Height: 180.00 cm BSA: 2.26 m Weight: 107.00 kg Tech: LINDEN Referring MD: REBECCA SALINAS Site: [facility] Reading Location: Mobile-OP Patient Location: Outpatient. Procedure: 2D, Color Doppler and Spectral Doppler. Indication for study: Palpitations Cardiac Rhythm: Regular.Study quality: Good. Final Impressions: 1. Normal left ventricular size, normal wall thickness, normal global systolic function, calculated EF of 61 %. 2. Right ventricular cavity size is normal, global systolic RV function is normal. 3. No significant valve disease detected. 4. No pericardial effusion. Comparison Compared to prior exam of 08/03/16, there has been no significant change. Chamber Sizes and Function Normal left ventricular size, normal wall thickness, normal global systolic function, calculated EF of 61 %. No resting regional wall motion abnormality visualized. Left atrial size is normal. Left atrial pressure is normal. Right ventricular cavity size is normal, global systolic RV function is normal. RV wall thickness is normal. The right atrium is normal. Right atrial volume index is 16 ml/m . Right atrial area is 15 cm . The pulmonary artery is of normal size and origin. The sinus of Valsalva is normal sized. The ascending aorta is normal sized. Valves, RV Pressures and Diastolic Function The aortic valve is normal in structure and trileaflet, no stenosis and no regurgitation. The mitral valve is normal in structure, no mitral regurgitation. Normal diastolic function. The tricuspid valve is normal in structure, regurgitation is not evident tricuspid regurgitation. The pulmonic valve is normal. No pulmonary regurgitation. Masses, Effusion, Shunts There is no pericardial effusion. The inferior vena cava is normal sized, respiratory size variation greater than 50%. No left to right shunting was detected by limited color flow Doppler interrogation of the interatrial septum. MEASUREMENTS AND CALCULATIONS 2-D Measurements and LV Function: LVID (d) 5.1 cm Planimetered EF 61 % LVID (s) 3.5 cm LV FS% (2D) 32 % IVS (d) 1.2 cm LVOT diameter 2.0 cm LVPW (d) 1.1 cm HR 70 bpm Ao Sinus 3.6 cm LA Vol index 27 ml/m2 Ao Sinus ULN 3.6 cm * RA Vol index 16 ml/m2 Asc Ao 3.6 cm RA area 15 cm Asc Ao ULN 3.6 cm * RV Basal Diam 3.4 cm LA 4.0 cm RV Mid Diam 2.0 cm * Input BSA outside of range, reported values correspond to BSA = 1.9 Diastology: Mitral Tissue Doppler Pulmonary veins E Peak 0.7 m/s e', Septum 0.12 m/s Pulm s 55.2 cm/s A Peak 0.6 m/s e', Lateral 0.17 m/s Pulm d 46.6 cm/s E/A 1.2 E/e' Average 4.85 Pulm s/d ratio 1.18 DT 378 msec Aortic Valve: Vmax 1.2 m/s CHARMAINE (V) 2.79 cm VTI 0.30 m CHARMAINE (I) 2.51 cm LVOT V max 1.0 m/s Max PG 6 mmHg LVOT VTI 0.24 m Mean PG 3 mmHg SV 76 ml Dim Index 0.78 SV index 34 ml/m CO 5.3 l/min CI 2.4 l/min/m Mitral Valve: MVA 2.0 cm MV P 1/2 110 msec Tricuspid Valve and estimated PA pressures: TAPSE 2.5 cm Pulmonic Valve: PV Vmax 1.1 m/s . This study was interpreted by an [facility] accredited facility. CC: [facility] ([facility]) [facility]. Final Procedure Note Dina Amaya MD - 02/16/2025 ECHOCARDIOGRAM CHERYL SRINIVASAN : 1985 39 years Study Date: 02/16/2025 2:37:10 PM Gender: F BP: 126/85 mmHg Height: 180.00 cm BSA: 2.26 m Weight: 107.00 kg Tech: NWA Referring MD: REBECCA SALINAS Site: [facility] Reading Location: Mobile-OP Patient Location: Outpatient. Procedure: 2D, Color Doppler and Spectral Doppler. Indication for study: Palpitations Cardiac Rhythm: Regular.Study quality: Good. Final Impressions: 1. Normal left ventricular size, normal wall thickness, normal globalsystolic function, calculated EF of 61 %. 2. Right ventricular cavity size is normal, global systolic RV functionis normal. 3. No significant valve disease detected. 4. No pericardial effusion. Comparison Compared to prior exam of 08/03/16, there has been no significantchange. Chamber Sizes and Function Normal left ventricular size, normal wall thickness, normal globalsystolic function, calculated EF of 61 %. No resting regional wall motionabnormality visualized. Left atrial size is normal. Left atrial pressureis normal. Right ventricular cavity size is normal, global systolic RVfunction is normal. RV wall thickness is normal. The right atrium isnormal. Right atrial volume index is 16 ml/m . Right atrial area is 15cm . The pulmonary artery is of normal size and origin. The sinus ofValsalva is normal sized. The ascending aorta is normal sized. Valves, RV Pressures and Diastolic Function The aortic valve is normal in structure and trileaflet, no stenosis and noregurgitation. The mitral valve is normal in structure, no mitralregurgitation. Normal diastolic function. The tricuspid valve is normal instructure, regurgitation is not evident tricuspid regurgitation. Thepulmonic valve is normal. No pulmonary regurgitation. Masses, Effusion, Shunts There is no pericardial effusion. The inferior vena cava is normal sized,respiratory size variation greater than 50%. No left to right shunting wasdetected by limited color flow Doppler interrogation of the interatrialseptum. MEASUREMENTS AND CALCULATIONS 2-D Measurements and LV Function: LVID (d) 5.1 cm Planimetered EF 61% LVID (s) 3.5 cm LV FS% (2D) 32% IVS (d) 1.2 cm LVOT diameter2.0 cm LVPW (d) 1.1 cm HR 70bpm Ao Sinus 3.6 cm LA Vol index 27ml/m2 Ao Sinus ULN 3.6 cm * RA Vol index 16ml/m2 Asc Ao 3.6 cm RA area 15cm Asc Ao ULN 3.6 cm * RV Basal Diam3.4 cm LA 4.0 cm RV Mid Diam2.0 cm * Input BSA outside of range, reported values correspond to BSA = 1.9 Diastology: Mitral Tissue Doppler Pulmonary veins E Peak 0.7 m/s e', Septum 0.12 m/s Pulm s 55.2 cm/s A Peak 0.6 m/s e', Lateral 0.17 m/s Pulm d 46.6 cm/s E/A 1.2 E/e' Average 4.85 Pulm s/d ratio 1.18 DT 378 msec Aortic Valve: Vmax 1.2 m/s CHARMAINE (V) 2.79 cm VTI 0.30 m CHARMAINE (I) 2.51 cm LVOT V max 1.0 m/s Max PG 6 mmHg LVOT VTI 0.24 m Mean PG 3 mmHg SV 76 ml Dim Index 0.78 SV index 34 ml/m CO 5.3 l/min CI 2.4 l/min/m Mitral Valve: MVA 2.0 cm MV P 1/2 110 msec Tricuspid Valve and estimated PA pressures: TAPSE 2.5 cm Pulmonic Valve: PV Vmax 1.1 m/s . This study was interpreted by an [facility] accredited facility. CC: [facility] ([facility]) [facility]. Final Rebecca Salinas MD ECHO ORD Final Re sult * HPV HIGH RISK (10/03/2023 7:52 AM QA TEST LEAD) TYPE 16 Negative Negative 10/05/2023 1:42 PM QA TEST LEAD [facility] TYPE 18 Negative Negative 10/05/2023 1:42 PM QA TEST LEAD [facility] OTHER HIGH RISK TYPES Negative Negative 10/05/2023 1:42 PM QA TEST LEAD [facility] Other (Cervical/Vagina l) 10/03/2023 7:52 AM QA TEST LEAD 10/04/2023 10:05 AM QA TEST LEAD Narrative [facility] - 10/05/2023 1:42 PM QA TEST LEAD HPV types 16, 18, 31, 33, 35, 39, 45, 51, 52, 56, 58, 59, 66 and 68 DNA were undetectable or below the pre-set threshold. Methodology: Kenneth Tasha 4800 HPV Test Rebecca Salinas MD MICROBIOLOGY Final Re sult [facility] [address] [place] [place] [address], [place] from Last 3 Months or Most Recently Relevant to Health Maintenance Insurance [facility] Advance Directives * Full Code (Latest Code Status on File) Date Activated Date Inactivated Comments 05/01/2025 10:21 AM 05/01/2025 2:47 PM Question Answer Comments Code Status Discussion: Reviewed Preferences Care Teams Sandblast Or Shotblast Equipment Tender Relationship Specialty [place] [address] [place] [address] PCP - General Family Practice 02/12/17
[2025-05-04 14:11] VITALS: BP 116/83; PULSE 61; RESP 16; TEMP 36.4; O2SAT 98
--- NOTE | 2025-05-04 16:32 | CRLHL7_ITS ---
For Patients: As a result of the 21st Century Cures Act, medical imaging exams and procedure reports are released immediately into your electronic medical record. You may view this report before your referring provider. If you have questions, please contact your health care provider. INDICATION: RT SIDED ABD PAIN. S/P COLONOSCOPY 05/01/25. (Sic) COMPARISON: None available. TECHNIQUE: CT of the abdomen and pelvis with 128 cc of Isovue 370 intravenous contrast. Please note that all CT scans at this facility use dose modulation, iterative reconstruction, and/or weight-based dosing when appropriate to reduce radiation dose to as low as reasonably achievable. FINDINGS: ABDOMEN Liver: Normal contour. Minimal focal fatty infiltration in the left hepatic lobe adjacent to the intersegmental fissure.. Nonspecific oval hypoattenuating finding in the posterior subcapsular aspect of the superior right hepatic lobe measuring 12 mm (series 2; image 23). Further evaluation (MRI) is recommended per ACR white paper guidelines. No intrahepatic biliary ductal dilatation. Patent portal veins. Hepatic veins are not enhanced on this hepatic arterial phase study. Gallbladder: Cholecystectomy. Normal common duct caliber. Pancreas: Normal contour and attenuation. No peripancreatic inflammatory changes. No significant focal lesion. Normal main duct caliber. Spleen: Not enlarged. No significant focal lesion. Patent splenic artery and vein. Adrenal Glands: Symmetrical adrenal glands. No significant focal lesion. Kidneys: Normal bilateral renal attenuation. No significant focal lesion. No nephrolith. No dilatation of the intrarenal collecting systems. No ureteral stone. Nondilated ureters. Patent renal arteries and veins. Gastrointestinal tract: A intraluminal linear metallic density foreign body is seen eccentrically along the medial wall of the proximal ascending colon consistent with an endoscopic clip. There does appear to be non circumferential focal wall thickening at this location (2; 82). Note is otherwise made of pericolic fat stranding adjacent to the colon at the level of the Endoclip (series 2; image 79 and series 4; image 42) which may signify edema or hemorrhage. There is no evidence of active bleeding. No evidence of extraluminal gas or free fluid to indicate perforation. Normal appendix. Vascular: Abdominal aorta and its major proximal branches including the celiac, superior mesenteric, inferior mesenteric, renal, and bilateral common iliac arteries are patent. Patent superior mesenteric vein. Peritoneal Cavity/Retroperitoneum: No ascites. No adenopathy. PELVIS No bladder lesion is identified. Centrally located IUD. 4.8 cm LEFT uterine fibroid. A 2nd fibroid measuring 2.7 cm is seen within the region of the lower uterine segment (2; 138). Differential diagnostic considerations for this finding include a cervical nabothian cyst. 2.1 cm RIGHT ovarian corpus luteum (series 2; image 132). Small volume low density pelvic ascites within physiologic limits of normal. No adenopathy. SKELETON AND BODY WALL Moderate disc degeneration at L5-S1. LOWER THORAX Incidental 16 mm right pericardial cyst (series 2; image 1). IMPRESSION: 1. Endoscopy clip located along the medial wall of the proximal ascending colon. Noncircumferential focal wall thickening of the colon is noted at this location. Correlate with findings at the time of colonoscopy. Note is otherwise made of pericolic fat stranding adjacent to the colon at the level of the clip which may signify edema or hemorrhage. There is no evidence of active bleeding. No evidence of perforation. 2. Incidental nonspecific 12 mm posterior subcapsular hepatic lesion for which further evaluation (MRI) is recommended per ACR white paper guidelines. 3. Additional incidental findings as above. Please note that all CT scans at this facility use dose modulation, iterative reconstruction, and/or weight-based dosing when appropriate to reduce radiation dose to as low as reasonably achievable. Dictated by Spike Camarena MD @ 05/04/2025 6:21:10 PM (Electronically Signed)
--- NOTE | 2025-05-04 16:33 | ED.ABDPAIN ---
HPI - Abdominal Pain General Chief Complaint: Abdominal Pain Stated Complaint: Pain in right side Time Seen by Provider: 05/04/25 16:12 History of Present Illness HPI narrative: This 39-year-old female reports right-sided abdominal pain for the past 3 days. She had a colonoscopy 3 days ago and states that she developed pain soon after this procedure. The pain was more intermittent initially but now is constant. She states that she has trouble sleeping at night despite taking Tylenol for the pain. She does not report any fever, nausea, vomiting, or altered bowel function. She states that she has had several colonoscopies in the past but never with subsequent symptoms like this. Related Data Home Medications ?Medication ?Instructions ?Recorded ?Confirmed acetaminophen 325 mg tablet 325 mg PO ONCE PRN 04/14/23 04/07/25 (Masophen) loratadine 10 mg tablet (Claritin) 10 mg PO QDAY 04/14/23 04/07/25 cholecalciferol (vitamin D3) 25 25 mcg PO QDAY 08/14/23 04/07/25 mcg (1,000 unit) capsule levonorgestrel (Mirena) 1 device intrauterine ONCE 10/03/23 04/07/25 buspirone 10 mg tablet 10 mg PO QDAY 12/31/24 04/07/25 infliximab 100 mg intravenous IV 04/07/25 04/07/25 solution (Remicade) Previous Rx's ?Medication ?Instructions ?Recorded escitalopram oxalate 20 mg tablet 20 mg PO QDAY #90 tabs 10/02/24 (Lexapro) fluticasone propionate 50 2 spray intranasal QDAY #16 grams 10/02/24 mcg/actuation nasal spray,suspension omeprazole 20 mg capsule,delayed 20 mg PO QDAY #90 caps 10/02/24 release Allergies Allergy/AdvReac Type Severity Reaction Status Date / Time amoxicillin Allergy Mild Rash Verified 05/04/25 16:58 Penicillins Allergy Mild Rash Verified 05/04/25 16:58 Review of Systems Status of ROS Reports: 10 or more systems reviewed and unremarkable except as noted in History and below Narrative Constitutional: No fevers, no weight gain or loss. Eyes: No discharge. No vision changes. HENT: No congestion, no sore throat, no ear pain. Cardiovascular: No chest pain, no palpitations. Respiratory: No shortness of breath, no wheezes, no cough. Gastrointestinal: No vomiting, no diarrhea. Abdominal pain as described above. Genitourinary: No dysuria, no hematuria. Musculoskeletal: Normal range of motion. Skin: No rashes, no pruritis. Neurological: No dizziness, weakness, sensory change, speech change. Endo/Heme/Allergies: No bruising or bleeding. No polydipsia. Pysch: no suicidality, no anxiety, no insomnia. All other systems reviewed and are negative. [facility] Medical History (Updated 05/04/25 @ 19:01 by Carson Arias MD) H/O echocardiogram (02/16/25) ?Z92.89 - Personal history of other medical treatment (ICD-10) History of vitamin D deficiency ?Z86.39 - Personal history of other endocrine, nutritional and metabolic disease (ICD-10) UARS (upper airway resistance syndrome) ?G47.8 - Other sleep disorders (ICD-10) Chronic low back pain ?M54.50 - Low back pain, unspecified (ICD-10) ?G89.29 - Other chronic pain (ICD-10) Allergic rhinitis ?J30.9 - Allergic rhinitis, unspecified (ICD-10) Hx of major depression ?Z86.59 - Personal history of other mental and behavioral disorders (ICD-10) Prediabetes (08/2023) ?R73.03 - Prediabetes (ICD-10) Obesity (BMI 30-39.9) ?E66.9 - Obesity, unspecified (ICD-10) Chronic GERD ?K21.9 - Gastro-esophageal reflux disease without esophagitis (ICD-10) Anxiety ?F41.9 - Anxiety disorder, unspecified (ICD-10) Crohn's disease (2007) ?K50.90 - Crohn's disease, unspecified, without complications (ICD-10) Surgical History IUD (intrauterine device) in place ?Z97.5 - Presence of (intrauterine) contraceptive device (ICD-10) History of wisdom tooth extraction ?K08.409 - Partial loss of teeth, unspecified cause, unspecified class (ICD-10) History of umbilical hernia repair (01/04/21) ?Z98.890 - Other specified postprocedural states (ICD-10) ?Z87.19 - Personal history of other diseases of the digestive system (ICD-10) Epidermoid cyst of skin of inguinal region ?L72.0 - Epidermal cyst (ICD-10) History of cholecystectomy (01/04/21) ?Z90.49 - Acquired absence of other specified parts of digestive tract (ICD-10) Family History Thyroid cancer Father, Onset Age: 51 Diabetes Paternal Grandmother Paternal Grandfather Osteoporosis Mother Alzheimers disease Maternal Grandfather Anxiety Mother Sister Son Deafness Father Mother Depression Mother Sister Son Myocardial infarction Paternal Grandfather Uncle, Onset Age: 50 COPD (chronic obstructive pulmonary disease) Mother Cancer of kidney Sister, Onset Age: 39 Thoracic aortic dissection Father, Onset Age: 51 ADHD (attention deficit hyperactivity disorder) Son Multiple sclerosis Uncle Social History Narrative: , paraprofessional elementary school, 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[employer], 1 child 2 step children Nonsmoker, quit 2018, history of 6 pack years Rare alcohol use exercise 3 / week running/ walking, weights, 90 min What is your current living situation?: I presently have a place to live Problems where you live: no known problems In the past 12 months, utilities in danger of being shut off: no In past 12 months, lack of transportation kept you from medical appts, meetings, work, or getting things needed for daily living: no In the past 12 mos, have been you worried that your food would run out before you had money to buy more?: never true In the past 12 mos, the food you bought just didn't last and you didn't have money to buy more?: never true Smoking Status: Never smoker How often do you have a drink containing alcohol: monthly or less AUDIT-C Alcohol total score: 1 Non-prescribed substance use: denies use How often does anyone, including family, friends and others, physically hurt you: never How often does anyone, including family, friends and others, insult or talk down to you: sometimes How often does anyone, including family, friends and others, threaten you with harm: never How often does anyone, including family, friends and others, scream or curse at you: never Health Related Social Needs: Other personal risk factors, not elsewhere classified (Z91.89) Exam Narrative: Exam Narrative: Constitutional: Well-developed, well-nourished, no acute distress. HEENT: Normocephalic, atraumatic. Neck: Normal range of motion. Nontender. Supple. Heart: Regular. No murmurs. Normal rate. Intact distal pulses. Lungs: Clear to auscultation. No chest discomfort. No wheezes, rhonchi, or rales. Abdomen: Normal bowel sounds. Diffuse pain in the right abdomen. No rebound tenderness. Genitalia: Deferred. Back: No midline tenderness. Normal range of motion. She reports pain also in the right side of her back. Extremities: Normal range of motion. No injury. Skin: Intact. No rash. Warm. No erythema or pallor. Neurologic: No altered sensation. No weakness. Alert and oriented. Psychiatric: No suicidality. No anxiety or depression. No insomnia. Nursing notes and vitals signs are reviewed. Const: Vital Signs, click to edit/add: Vital Signs - 24 hr 05/04/25 14:11 05/04/25 17:44 Temperature 97.5 F L Pulse Rate [Pulse Oximeter] 61 54 L Respiratory Rate 16 16 Blood Pressure [Ri ght Upper Arm] 116/83 106/63 Pulse Oximetry 98 98 Oxygen Delivery Me thod Room Air Room Air Course Vital Signs Vital signs: Initial Vital Signs Temperature 97.5 F L 05/04/25 14:11 Temperature Source Temporal Artery Scan 05/04/25 14:11 Pulse Rate 61 05/04/25 14:11 Pulse Rhythm Regular 05/04/25 14:11 Respiratory Rate 16 05/04/25 14:11 Blood Pressure 116/83 05/04/25 14:11 Blood Pressure Mean 94 05/04/25 14:11 Blood Pressure Position Sitting 05/04/25 14:11 Pulse Oximetry 98 05/04/25 14:11 Oxygen Delivery Method Room Air 05/04/25 14:11 Vital Signs Temperature 97.5 F L 05/04/25 14:11 Pulse Rate 61 05/04/25 14:11 Respiratory Rate 16 05/04/25 14:11 Blood Pressure 116/83 05/04/25 14:11 Pulse Oximetry 98 05/04/25 14:11 Oxygen Delivery Method Room Air 05/04/25 14:11 Temperature 97.5 F L 05/04/25 14:11 Pulse Rate 54 L 05/04/25 17:44 Respiratory Rate 16 05/04/25 17:44 Blood Pressure 106/63 05/04/25 17:44 Pulse Oximetry 98 05/04/25 17:44 Oxygen Delivery Method Room Air 05/04/25 17:44 MDM - Abdominal Pain MDM Narrative Medical decision making narrative: This patient comes in with abdominal pain as described above. An IV is established and CT scan with contrast is ordered. This does returned with evidence of reactive findings around the surgical clip placed after removal of a large polyp. The patient is not showing any white count in her labs. Her vital signs are also normal. I did speak with our surgeon on-call, Dr. Chacon, who recommended admission and recheck overnight as this could be a brewing abscess or some microperforation. The patient received IV doses of Zosyn, Dilaudid, and Zofran. She also received some IV fluids. The patient does have penicillin listed as an allergy but she states this was when she was a very young child when she had some welts at a time that she was being treated for an infection. Since then she has taken antibiotics on a few occasions in the penicillin family without any reactions. I spoke also with the hospitalist on-call, Dr. Khan, who will arrange for admission. Lab Data Labs: Lab Results 05/04/25 Range/Units 16:38 WBC 9.16 (4.50-11.00) K/uL RBC 4.49 (4.00-5.20) m/uL Hgb 13.6 (12.0-16.0) gm/dL Hct 41.3 (33.0-51.0) % MCV 92 (80-100) fL MCH 30 (26-34) pg MCHC 33 (32-36) gm/dL RDW Coeff of Vaishali 12.1 (11.5-15.5) % Plt Count 367 (140-440) K/uL Neut % (Auto) 52.3 (42.0-72.0) % Lymph % (Auto) 34.9 (20-44) % Arroyo % (Auto) 6.1 (0.0-11.0) % Eos % (Auto) 5.8 (0.0-7.0) % Baso % (Auto) 0.7 (0.0-3.0) % Neut # (Auto) 4.79 (1.7-7.0) K/uL Lymph # (Auto) 3.20 H (0.90-2.90) K/uL Arroyo # (Auto) 0.60 (0.00-0.90) K/UL Eos # (Auto) 0.53 H (0.00-0.50) K/uL Baso # (Auto) 0.06 (0.00-0.30) K/uL Abs Immat Gran (auto) 0.02 (0.00-0.30) K/uL Imm/Tot Granulo (auto) 0.2 % Imaging Data CT scan - abdomen: Radiologist's impression: 1. Endoscopy clip located along the medial wall of the proximal ascending colon. Noncircumferential focal wall thickening of the colon is noted at this location. Correlate with findings at the time of colonoscopy. Note is otherwise made of pericolic fat stranding adjacent to the colon at the level of the clip which may signify edema or hemorrhage. There is no evidence of active bleeding. No evidence of perforation. 2. Incidental nonspecific 12 mm posterior subcapsular hepatic lesion for which further evaluation (MRI) is recommended per ACR white paper guidelines. Discharge Plan Discharge Clinical Impression: Abdominal pain Patient Disposition: Admitted As Inpatient Condition: Unchanged
[2025-05-04 16:55] LABS: Hematocrit* 41.3 % (33.0-51.0); Hemoglobin* 13.6 gm/dL (12.0-16.0); Immature Granulocytes Abs Auto 0.02 K/uL (0.00-0.30); Immature Granulocytes Pct Auto 0.2 %; Lymphocytes Absolute Auto 3.20 K/uL (0.90-2.90); Mean Corpuscular HGB Conc 33 gm/dL (32-36); Mean Corpuscular Hemoglobin 30 pg (26-34); Mean Corpuscular Volume 92 fL (80-100); RDW Coefficient of Variation % 12.1 % (11.5-15.5); Red Blood Count* 4.49 m/uL (4.00-5.20); White Blood Count* 9.16 K/uL (4.50-11.00)
[2025-05-04 17:01] LABS: Slide Review Reflex No
[2025-05-04 17:44] VITALS: BP 106/63; PULSE 54; RESP 16; O2SAT 98
[2025-05-04] MEDS: PIPERACILLIN/TAZOBACTAM 3.375 GM in 0.9 % SODIUM CHLORIDE Mini-bag 100 ML IVPB (19:11)
[2025-05-04] MEDS: ONDANSETRON 2 MG/ML inj 4 MG IVP (19:12)
[2025-05-04 19:37] VITALS: BP 118/82; PULSE 60; RESP 16; TEMP 36.7; O2SAT 98; BMI 25.7; BMI 25.8
--- NOTE | 2025-05-04 20:05 | PM.IMHP1 ---
Assessment and Plan Assessment and plan (1) Abdominal pain: Problem comment: Abdominal pain following colonoscopy with polypectomy with CT scan showing inflammatory changes around the polypectomy site. Admit for IV antibiotics and surgical consult Status: Acute (2) Status post colonoscopy with polypectomy: Problem comment: [facility] 05/01/2025. 30 mm polyp removed. Pathology results pending Status: Acute (3) Crohn's disease: Problem comment: MNGIevery 2 years is on mesalamine and gets a scope every 2 years Status: Chronic Plan 39-year-old female with abdominal pain since colonoscopy with polypectomy admitted for IV antibiotics. Total Time Spent Total Time Spent: Total time spent today is 65 minutes in reviewing outside records and coordination of care discussing with patient ongoing evaluation management of abdominal pain, complications of polypectomy. Hospitalist- H&P: HPI History of Present Illness Date Seen: 05/04/25 Chief complaint: Pain in right side Narrative: Rashmi Gilmore is a 39 year old female with Crohn's disease and colonoscopy with polypectomy 3 days ago presents with 3 days of post colonoscopy right-sided abdominal pain. She has had recurrent colonoscopy for her Crohn's disease. About 3 months ago she had colonoscopy that identified a large polyp in the ascending colon. This was too large to remove at that time so she was referred to [facility] for inpatient colonoscopy. Procedures performed on Sunday, 3 days ago. There was a 30 mm polyp removed from her ascending colon. A clip was placed on the biopsy site. Sunday evening she started having right-sided abdominal pain. It would come and go. The quality of the pain changed from crampy to sharp to pressure. She started to feel hot and diaphoretic. Symptoms came and went over the weekend. She was eating very small meals and noted that when she would eat she would have increase in pain. She had a larger meal last night that made her feel a lot of pain and nausea but no vomiting. She did have a normal bowel movement yesterday without obvious blood. She has a history of a penicillin allergy that occurred while she was a baby. In the emergency department she received piperacillin tazobactam without adverse reaction. Review of Systems Narrative: She reports she has been doing well prior to her colonoscopy. Review of systems otherwise unremarkable Medical Decision Making Medical Decision Making Has patient completed a Health Care Directive: No PFSH PFSH Medical History H/O echocardiogram (02/16/25) ?Z92.89 - Personal history of other medical treatment (ICD-10) History of vitamin D deficiency ?Z86.39 - Personal history of other endocrine, nutritional and metabolic disease (ICD-10) UARS (upper airway resistance syndrome) ?G47.8 - Other sleep disorders (ICD-10) Chronic low back pain ?M54.50 - Low back pain, unspecified (ICD-10) ?G89.29 - Other chronic pain (ICD-10) Allergic rhinitis ?J30.9 - Allergic rhinitis, unspecified (ICD-10) Hx of major depression ?Z86.59 - Personal history of other mental and behavioral disorders (ICD-10) Prediabetes (08/2023) ?R73.03 - Prediabetes (ICD-10) Obesity (BMI 30-39.9) ?E66.9 - Obesity, unspecified (ICD-10) Chronic GERD ?K21.9 - Gastro-esophageal reflux disease without esophagitis (ICD-10) Anxiety ?F41.9 - Anxiety disorder, unspecified (ICD-10) Crohn's disease (2007) ?K50.90 - Crohn's disease, unspecified, without complications (ICD-10) Surgical History IUD (intrauterine device) in place ?Z97.5 - Presence of (intrauterine) contraceptive device (ICD-10) History of wisdom tooth extraction ?K08.409 - Partial loss of teeth, unspecified cause, unspecified class (ICD-10) History of umbilical hernia repair (01/04/21) ?Z98.890 - Other specified postprocedural states (ICD-10) ?Z87.19 - Personal history of other diseases of the digestive system (ICD-10) Epidermoid cyst of skin of inguinal region ?L72.0 - Epidermal cyst (ICD-10) History of cholecystectomy (01/04/21) ?Z90.49 - Acquired absence of other specified parts of digestive tract (ICD-10) Family History Father Thoracic aortic dissection, Onset Age: 51 Thyroid cancer, Onset Age: 51 Deafness Mother Depression Anxiety Deafness COPD (chronic obstructive pulmonary disease) Osteoporosis Sister Depression Anxiety Cancer of kidney, Onset Age: 39 Uncle Myocardial infarction, Onset Age: 50 Son Depression Anxiety ADHD (attention deficit hyperactivity disorder) Maternal Grandfather Alzheimers disease Uncle Multiple sclerosis Paternal Grandmother Diabetes Paternal Grandfather Myocardial infarction Diabetes Social History (Updated 05/04/25 @ 21:03 by Francisco Khan MD) Narrative: to her Nate Gilmore. He is healthcare power of mergers and acquisitions attorney. Code status is full. 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, 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[employer], 1 child and 2 step children Nonsmoker, quit 2018, history of 6 pack years Rare alcohol use exercise 3 / week running/ walking, weights, 90 min What is your current living situation?: I presently have a place to live Problems where you live: no known problems Problems where you live details: N/A In the past 12 months, utilities in danger of being shut off: no In past 12 months, lack of transportation kept you from medical appts, meetings, work, or getting things needed for daily living: no In the past 12 mos, have been you worried that your food would run out before you had money to buy more?: never true In the past 12 mos, the food you bought just didn't last and you didn't have money to buy more?: never true Highest level of school completed/degree received: Associate degree: academic program Smoking Status: Never smoker Second hand tobacco smoke exposure: No How often do you have a drink containing alcohol: monthly or less Alcohol type: wine AUDIT-C Alcohol total score: 1 Non-prescribed substance use: denies use Caffeine: No How often does anyone, including family, friends and others, physically hurt you: never How often does anyone, including family, friends and others, insult or talk down to you: sometimes How often does anyone, including family, friends and others, threaten you with harm: never How often does anyone, including family, friends and others, scream or curse at you: never service: No Health Related Social Needs: Other personal risk factors, not elsewhere classified (Z91.89) Meds Home Medications and Allergies Home Medications ?Medication ?Instructions ?Recorded ?Confirmed ?Type acetaminophen 325 mg tablet 325 mg PO ONCE PRN 04/14/23 04/07/25 History (Masophen) loratadine 10 mg tablet (Claritin) 10 mg PO QDAY 04/14/23 04/07/25 History cholecalciferol (vitamin D3) 25 25 mcg PO QDAY 08/14/23 04/07/25 History mcg (1,000 unit) capsule levonorgestrel (Mirena) 1 device intrauterine ONCE 10/03/23 04/07/25 History escitalopram oxalate 20 mg tablet 20 mg PO QDAY #90 tabs 10/02/24 04/07/25 Rx (Lexapro) fluticasone propionate 50 2 spray intranasal QDAY #16 grams 10/02/24 04/07/25 Rx mcg/actuation nasal spray,suspension omeprazole 20 mg capsule,delayed 20 mg PO QDAY #90 caps 10/02/24 04/07/25 Rx release buspirone 10 mg tablet 10 mg PO QDAY 12/31/24 04/07/25 History infliximab 100 mg intravenous IV 04/07/25 04/07/25 History solution (Remicade) Home Medication Comments: Last dose of Remicade was 04/20/2025 Allergies Allergy/AdvReac Type Severity Reaction Status Date / Time amoxicillin Allergy Mild Rash Verified 05/04/25 16:58 Penicillins Allergy Mild Rash Verified 05/04/25 16:58 Exam Const: Vital Signs, click to edit/add: Vital Signs - 24 hr 05/04/25 14:11 05/04/25 17:44 05/04/25 19:37 Temperature 97.5 F L 98.1 F Pulse Rate [Pulse Oximeter] 61 54 L Pulse Rate [Right Pulse Oximeter] 60 Respiratory Rate 16 16 16 Blood Pressure [Le ft Arm] 118/82 Blood Pressure [Ri ght Upper Arm] 116/83 106/63 Pulse Oximetry 98 98 98 Oxygen Delivery Me thod Room Air Room Air Room Air Documenting provider has reviewed patient's vital signs: yes Hospitalist - H&P: Result Labs Labs: Short CBC 05/04/25 Range/Units 16:38 WBC 9.16 (4.50-11.00) K/uL Hgb 13.6 (12.0-16.0) gm/dL Hct 41.3 (33.0-51.0) % Plt Count 367 (140-440) K/uL Imaging CT scan - abdomen: Radiologist's impression: INDICATION: RT SIDED ABD PAIN. S/P COLONOSCOPY 05/01/25. (Sic) COMPARISON: None available. TECHNIQUE: CT of the abdomen and pelvis with 128 cc of Isovue 370 intravenous contrast. Please note that all CT scans at this facility use dose modulation, iterative reconstruction, and/or weight-based dosing when appropriate to reduce radiation dose to as low as reasonably achievable. FINDINGS: ABDOMEN Liver: Normal contour. Minimal focal fatty infiltration in the left hepatic lobe adjacent to the intersegmental fissure.. Nonspecific oval hypoattenuating finding in the posterior subcapsular aspect of the superior right hepatic lobe measuring 12 mm (series 2; image 23). Further evaluation (MRI) is recommended per ACR white paper guidelines. No intrahepatic biliary ductal dilatation. Patent portal veins. Hepatic veins are not enhanced on this hepatic arterial phase study. Gallbladder: Cholecystectomy. Normal common duct caliber. Pancreas: Normal contour and attenuation. No peripancreatic inflammatory changes. No significant focal lesion. Normal main duct caliber. Spleen: Not enlarged. No significant focal lesion. Patent splenic artery and vein. Adrenal Glands: Symmetrical adrenal glands. No significant focal lesion. Kidneys: Normal bilateral renal attenuation. No significant focal lesion. No nephrolith. No dilatation of the intrarenal collecting systems. No ureteral stone. Nondilated ureters. Patent renal arteries and veins. Gastrointestinal tract: A intraluminal linear metallic density foreign body is seen eccentrically along the medial wall of the proximal ascending colon consistent with an endoscopic clip. There does appear to be non circumferential focal wall thickening at this location (2; 82). Note is otherwise made of pericolic fat stranding adjacent to the colon at the level of the Endoclip (series 2; image 79 and series 4; image 42) which may signify edema or hemorrhage. There is no evidence of active bleeding. No evidence of extraluminal gas or free fluid to indicate perforation. Normal appendix. Vascular: Abdominal aorta and its major proximal branches including the celiac, superior mesenteric, inferior mesenteric, renal, and bilateral common iliac arteries are patent. Patent superior mesenteric vein. Peritoneal Cavity/Retroperitoneum: No ascites. No adenopathy. PELVIS No bladder lesion is identified. Centrally located IUD. 4.8 cm LEFT uterine fibroid. A 2nd fibroid measuring 2.7 cm is seen within the region of the lower uterine segment (2; 138). Differential diagnostic considerations for this finding include a cervical nabothian cyst. 2.1 cm RIGHT ovarian corpus luteum (series 2; image 132). Small volume low density pelvic ascites within physiologic limits of normal. No adenopathy. SKELETON AND BODY WALL Moderate disc degeneration at L5-S1. LOWER THORAX Incidental 16 mm right pericardial cyst (series 2; image 1). IMPRESSION: 1. Endoscopy clip located along the medial wall of the proximal ascending colon. Noncircumferential focal wall thickening of the colon is noted at this location. Correlate with findings at the time of colonoscopy. Note is otherwise made of pericolic fat stranding adjacent to the colon at the level of the clip which may signify edema or hemorrhage. There is no evidence of active bleeding. No evidence of perforation. 2. Incidental nonspecific 12 mm posterior subcapsular hepatic lesion for which further evaluation (MRI) is recommended per ACR white paper guidelines. 3. Additional incidental findings as above.
[2025-05-04 21:06] LABS: Chloride* 104 mmol/L (96-114); Lab Add On Test New Spec Needed; Potassium* 4.3 mmol/L (3.6-5.1); Sodium* 136 mmol/L (135-149)
[2025-05-04 21:10] LABS: Anion Gap 5 mEq/L (7-15); Blood Urea Nitrogen* 8 mg/dL (5-24); Calcium* 8.9 mg/dL (8.4-10.6); Carbon Dioxide* 27 mmol/L (20-32); Creatinine* 0.7 mg/dL (0.5-1.5); Est. Creatinine Clearance* 164.29; Estimated Glomerular Filt Rate 111 ml/min; Glucose* 98 mg/dL (60-115)
[2025-05-04 22:50] VITALS: BP 107/67; PULSE 55; RESP 16; TEMP 36.8; O2SAT 98
[2025-05-04] MEDS: SODIUM CHLORIDE 0.9 % (FLUSH) 10 ML SYRINGE 5 ML IVF (22:53)
[2025-05-04 23:46] LABS: Appearance Urine Clear (Clear)
[2025-05-04 23:49] LABS: Ur HCG Qualitative* Negative (Negative)
[2025-05-05] MEDS: PIPERACILLIN/TAZOBACTAM 3.375 GM in 0.9 % SODIUM CHLORIDE Mini-bag 100 ML IVPB ×2 (01:24→06:46)
[2025-05-05 02:21] VITALS: BP 103/66; PULSE 62; RESP 16; TEMP 36.4; O2SAT 97
--- NOTE | 2025-05-05 04:32 | PC.NURSE ---
Shift note: Pt was brought to the floor from ED at 1935 accompanied by her . Conscious, alert and oriented. She arrived with IV antibiotics and 1L N/S. Pt rated pain at 3. Vital signs were stable on arrival and has remained stable for the rest of the night. Pain has been between 4 and 7. PRN pain medications given as prescribed. Patient has not had BM but confirmed passing gas. Patient is independent in room and hallway. Tolerated clear liquid diet well.
[2025-05-05] MEDS: OMEPRAZOLE 20 MG CAPSULE DR PO (06:47)
[2025-05-05 07:00] VITALS: BP 102/65; PULSE 53; RESP 20; TEMP 36.6; O2SAT 99
[2025-05-05] MEDS: BUSPIRONE 10 MG TABLET PO (09:14)
[2025-05-05] MEDS: ERTAPENEM 1 GM in 0.9 % SODIUM CHLORIDE Mini-bag 100 ML IVPB (09:15)
[2025-05-05] MEDS: LORATADINE 10 MG TABLET PO (09:15)
[2025-05-05] MEDS: ESCITALOPRAM 10 MG TABLET 20 MG PO (09:15)
--- NOTE | 2025-05-05 10:37 | P.GSCN_ITS ---
History of Present Illness Consult details Date Seen: 05/05/25 Consult date: 05/05/25 Narrative: 39-year-old female on Remicade for Crohn's disease presented to emergency room with right-sided abdominal pain and I was asked by Dr. Patel to see her in consultation. Patient underwent a colonoscopy on Sunday at [facility] where a 3 cm polyp was removed. A single clip was placed after the polyp was removed. Patient went home and in the evening started to experience episodes of sharp right-sided abdominal pain. Her pain progressed throughout the weekend and was getting more severe. She states that the pain was worse when patient was moving or walking. She had decreased appetite. She was passing gas and had 2 bowel movements yesterday. She called GI clinic on Sunday to ask about her symptoms and was told to come to the emergency room. I personally reviewed her workup in the emergency room. Patient was found to have normal WBC. An abdominal CT was obtained that showed a metallic clip in the right colon. There is mild thickening of the colonic wall adjacent to the clip with mild fat stranding of the colonic mesentery. There was no intra peritoneal air, no abscess, no evidence of perforation. From reviewing patient's colonoscopy note Everlift was injected for submucosal resection of 3 cm polyp in the ascending colon. A single clip was then placed after the polyp was removed. Review of Systems Narrative: General: no fevers HENT: no problems swallowing CV: no shortness of breath Resp: no cough GI: No nausea, vomiting, abdominal pain : no dysuria, no increased urinary frequency, no hematuria Skin: no new rashes Musculoskeletal: no back pain Neuro: no muscle weakness Psyche: no depression, no anxiety [facility] Medical History H/O echocardiogram (02/16/25) ?Z92.89 - Personal history of other medical treatment (ICD-10) History of vitamin D deficiency ?Z86.39 - Personal history of other endocrine, nutritional and metabolic disease (ICD-10) UARS (upper airway resistance syndrome) ?G47.8 - Other sleep disorders (ICD-10) Chronic low back pain ?M54.50 - Low back pain, unspecified (ICD-10) ?G89.29 - Other chronic pain (ICD-10) Allergic rhinitis ?J30.9 - Allergic rhinitis, unspecified (ICD-10) Hx of major depression ?Z86.59 - Personal history of other mental and behavioral disorders (ICD-10) Prediabetes (08/2023) ?R73.03 - Prediabetes (ICD-10) Obesity (BMI 30-39.9) ?E66.9 - Obesity, unspecified (ICD-10) Chronic GERD ?K21.9 - Gastro-esophageal reflux disease without esophagitis (ICD-10) Anxiety ?F41.9 - Anxiety disorder, unspecified (ICD-10) Crohn's disease (2007) ?K50.90 - Crohn's disease, unspecified, without complications (ICD-10) Surgical History IUD (intrauterine device) in place ?Z97.5 - Presence of (intrauterine) contraceptive device (ICD-10) History of wisdom tooth extraction ?K08.409 - Partial loss of teeth, unspecified cause, unspecified class (ICD- 10) History of umbilical hernia repair (01/04/21) ?Z98.890 - Other specified postprocedural states (ICD-10) ?Z87.19 - Personal history of other diseases of the digestive system (ICD-10) Epidermoid cyst of skin of inguinal region ?L72.0 - Epidermal cyst (ICD-10) History of cholecystectomy (01/04/21) ?Z90.49 - Acquired absence of other specified parts of digestive tract (ICD- 10) Family History Father Thoracic aortic dissection, Onset Age: 51 Thyroid cancer, Onset Age: 51 Deafness Mother Depression Anxiety Deafness COPD (chronic obstructive pulmonary disease) Osteoporosis Sister Depression Anxiety Cancer of kidney, Onset Age: 39 Uncle Myocardial infarction, Onset Age: 50 Son Depression Anxiety ADHD (attention deficit hyperactivity disorder) Maternal Grandfather Alzheimers disease Uncle Multiple sclerosis Paternal Grandmother Diabetes Paternal Grandfather Myocardial infarction Diabetes Social History Narrative: to her Nate Gilmore. He is healthcare power of ip attorney. Code status is full. 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, 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[employer], 1 child and 2 step children Nonsmoker, quit 2019, history of 6 pack years Rare alcohol use exercise 3 / week running/ walking, weights, 90 min What is your current living situation?: I presently have a place to live Problems where you live: no known problems Problems where you live details: N/A In the past 12 months, utilities in danger of being shut off: no In past 12 months, lack of transportation kept you from medical appts, meetings, work, or getting things needed for daily living: no In the past 12 mos, have been you worried that your food would run out before you had money to buy more?: never true In the past 12 mos, the food you bought just didn't last and you didn't have money to buy more?: never true Highest level of school completed/degree received: Associate degree: academic program Smoking Status: Never smoker Second hand tobacco smoke exposure: No How often do you have a drink containing alcohol: monthly or less Alcohol type: wine AUDIT-C Alcohol total score: 1 Non-prescribed substance use: denies use Caffeine: No How often does anyone, including family, friends and others, physically hurt you : never How often does anyone, including family, friends and others, insult or talk down to you: sometimes How often does anyone, including family, friends and others, threaten you with harm: never How often does anyone, including family, friends and others, scream or curse at you: never service: No Health Related Social Needs: Other personal risk factors, not elsewhere classified (Z91.89) Meds Home Medications and Allergies Home Medications ?Medication ?Instructions ?Recorded ?Confirmed ?Type loratadine 10 mg tablet (Claritin) 10 mg PO QDAY 04/1405/05/25 History cholecalciferol (vitamin D3) 25 25 mcg PO QDAY 4 05/05/25 History mcg (1,000 unit) capsule escitalopram oxalate 20 mg tablet 20 mg PO QDAY #90 ta bs 10/02/24 05/05/25 Rx (Lexapro) fluticasone propionate 50 2 spray intranasal QDAY #16 grams 10/02/24 05/05/25 Rx mcg/actuation nasal spray,suspension omeprazole 20 mg capsule,delayed 20 mg PO QDAY #90 cap s 10/02/24 05/05/25 Rx release buspirone 10 mg tablet 10 mg PO BID 12/31/24 History infliximab 100 mg intravenous 500 mg IV Q8W 04/07/25 0 05/05/25 History solution (Remicade) oxycodone 5 mg tablet 5 mg PO Q4H PRN Pain #25 tab s 05/05/25 Rx Allergies Allergy/AdvReac Type Severity Reaction Status Date / Time amoxicillin Allergy Mild Rash Verified 05/04/25 16:58 Penicillins Allergy Mild Rash Verified 05/04/25 16:58 Exam Narrative: Exam Narrative: General appearance: Alert, cooperative, and in no distress Pulmonary: Chest symmetric, lungs clear bilaterally Cardiovascular Heart: Regular rate and rhythm, S1, S2, no murmurs/rubs/gallops Gastrointestinal Abdominal: soft, not distended, mildly tender to palpation in the right lower quadrant and right mid abdomen, no peritoneal signs. Skin: Normal skin color, texture, and turgor. No rashes or lesions. Psychiatric: Alert, cooperative, normal affect. Const: Vital Signs, click to edit/add: Vital Signs - 24 hr 05/04/25 14:11 05/04/25 17:44 05/04/25 19:37 Temperature 97.5 F L 98.1 F Pulse Rate [Pulse Oximeter] 61 54 L Pulse Rate [Right Pulse Oximeter] 60 Respiratory Rate 16 16 16 Blood Pressure [Le ft Arm] 118/82 Blood Pressure [Ri ght Upper Arm] 116/83 106/63 Pulse Oximetry 98 98 98 Oxygen Delivery Me thod Room Air Room Air Room Air 05/04/25 22:50 05/04/25 22:50 05/05/25 02:21 Temperature 98.3 F 97.5 F L Pulse Rate [Pulse Oximeter] Pulse Rate [Right Pulse Oximeter] 55 L 55 L 62 Respiratory Rate 16 16 16 Blood Pressure [Le ft Arm] 107/67 103/66 Blood Pressure [Ri ght Upper Arm] Pulse Oximetry 98 97 Oxygen Delivery Me thod Room Air Room Air 05/05/25 07:00 Temperature 97.9 F Pulse Rate [Pulse Oximeter] Pulse Rate [Right Pulse Oximeter] 53 L Respiratory Rate 20 Blood Pressure [Le ft Arm] 102/65 Blood Pressure [Ri ght Upper Arm] Pulse Oximetry 99 Oxygen Delivery Me thod Room Air Results Labs Labs: Abnormal lab results 05/04/25 05/04/25 Range/Units 16:38 22:36 Lymph # (Auto) 3.20 H (0.90-2.90) K/uL Eos # (Auto) 0.53 H (0.00-0.50) K/uL Anion Gap 5 L (7-15) mEq/L C-Reactive Protein 3.3 H (0.5-1.0) mg/dL Urine Blood Trace-intact A (Negative) Amorphous Sediment Few A (None) Urine Bacteria Few A (None) Lab Acknowledgement New Spec Needed A Diabetes panel 05/04/25 Range/Units 16:38 Sodium 136 (135-149) mmol/L Potassium 4.3 (3.6-5.1) mmol/L Chloride 104 (96-114) mmol/L Carbon Dioxide 27 (20-32) mmol/L BUN 8 (5-24) mg/dL Creatinine 0.7 (0.5-1.5) mg/dL Glucose 98 (60-115) mg/dL Calcium 8.9 (8.4-10.6) mg/dL Calcium panel 05/04/25 Range/Units 16:38 Calcium 8.9 (8.4-10.6) mg/dL Pituitary panel 05/04/25 Range/Units 16:38 Sodium 136 (135-149) mmol/L Potassium 4.3 (3.6-5.1) mmol/L Chloride 104 (96-114) mmol/L Carbon Dioxide 27 (20-32) mmol/L BUN 8 (5-24) mg/dL Creatinine 0.7 (0.5-1.5) mg/dL Glucose 98 (60-115) mg/dL Calcium 8.9 (8.4-10.6) mg/dL Adrenal panel 05/04/25 Range/Units 16:38 Sodium 136 (135-149) mmol/L Potassium 4.3 (3.6-5.1) mmol/L Chloride 104 (96-114) mmol/L Carbon Dioxide 27 (20-32) mmol/L BUN 8 (5-24) mg/dL Creatinine 0.7 (0.5-1.5) mg/dL Glucose 98 (60-115) mg/dL Calcium 8.9 (8.4-10.6) mg/dL All other labs normal. Progress Note:A&P Assessment and plan (1) Status post colonoscopy with polypectomy: Status: Acute Plan 39-year-old female on Remicade for Crohn's disease presents with right-sided abdominal pain after colonoscopy with 30 mm polypectomy in the ascending colon. I discussed with patient her CT findings and her laboratory findings. Patient does not have any evidence of perforation. 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 However, because she is on Remicade, I recommended to treat her with IV antibiotics. Patient's pain has not significantly changed since yesterday. We will advance her diet and continue IV antibiotics. Patient may discharge home by the end of today on IV ertapenem for 7 days. I discussed with the patient the concerning signs to watch for, and if she develops any of those, she needs to come back to the emergency room.
[2025-05-05] MEDS: ONDANSETRON 2 MG/ML inj 4 MG IVP (11:27)
--- NOTE | 2025-05-05 13:52 | P.DS_ITS ---
DS: Providers Provider Date Seen: 05/05/25 Date of admission: 05/04/25 19:24 Primary care physician: Rebecca Salinas MD Admitting Clinician: Francisco Khan MD Consults: 05/04/25 20:32 Consult to Physician [CONS] Routine Comment: Consulting Provider: Carlos Cisneros Has provider been notified: Yes Attending Physician on discharge: Anastasiia Ordaz [facility] Date of Discharge: 05/05/25 DS: Diagnosis Discharge Diagnosis (1) Status post colonoscopy with polypectomy: Status: Acute Problem details: Pao Roman 05/01/2025. 30 mm polyp removed. Pathology results showing serrated adenoma. Outpatient follow-up with [facility] surgery. 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 Recommending slow advancement of diet now and on discharge. Ertapenem x7 days - will return to [facility]. Pain and nausea management with Zofran and oxycodone on discharge. (2) Abdominal pain: Status: Acute Problem details: Abdominal pain following colonoscopy with polypectomy with CT scan showing inflammatory changes around the polypectomy site. Management as above. (3) Crohn's disease: Status: Chronic Problem details: [facility] every 2 years is on mesalamine and gets a scope every 2 years (4) Hepatic lesion: Status: Acute Problem details: Incidental nonspecific 12 mm posterior subcapsular hepatic lesion for which further evaluation (MRI) is recommended per ACR white paper guidelines Outpatient follow-up DS: Summary Hospital Course Hospital Course: Course of care and details as noted above. Status at Discharge Functional status at discharge: independent ambulation Overall status at discharge: patient is back to baseline Time Spent with Patient Time attestation: Total time spent providing and/or coordinating discharge services: Time spent: Greater than 30 minutes Exam Narrative: Exam Narrative: PHYSICAL EXAM General: Pleasant, conversant, NAD Cardiovascular: RRR Pulmonary: No dyspnea Abdomen: Soft, nondistended, mild tenderness RLQ Neurological: Alert, answering questions appropriately Skin: Warm, dry. Const: Vital Signs, click to edit/add: Vital Signs - 24 hr 05/04/25 14:11 05/04/25 17:44 05/04/25 19:37 Temperature 97.5 F L 98.1 F Pulse Rate [Pulse Oximeter] 61 54 L Pulse Rate [Right Pulse Oximeter] 60 Respiratory Rate 16 16 16 Blood Pressure [Le ft Arm] 118/82 Blood Pressure [Ri ght Upper Arm] 116/83 106/63 Pulse Oximetry 98 98 98 Oxygen Delivery Me thod Room Air Room Air Room Air 05/04/25 22:50 05/04/25 22:50 05/05/25 02:21 Temperature 98.3 F 97.5 F L Pulse Rate [Pulse Oximeter] Pulse Rate [Right Pulse Oximeter] 55 L 55 L 62 Respiratory Rate 16 16 16 Blood Pressure [Le ft Arm] 107/67 103/66 Blood Pressure [Ri ght Upper Arm] Pulse Oximetry 98 97 Oxygen Delivery Me thod Room Air Room Air 05/05/25 07:00 Temperature 97.9 F Pulse Rate [Pulse Oximeter] Pulse Rate [Right Pulse Oximeter] 53 L Respiratory Rate 20 Blood Pressure [Le ft Arm] 102/65 Blood Pressure [Ri ght Upper Arm] Pulse Oximetry 99 Oxygen Delivery Me thod Room Air DS: Data Data Completed and Pending Labs on day of discharge: Labs from last 24 hours 05/04/25 05/04/25 05/04/25 22:36 16:38 16:38 WBC 9.16 RBC 4.49 Hgb 13.6 Hct 41.3 MCV 92 MCH 30 MCHC 33 RDW Coeff of Vaishali 12.1 Plt Count 367 Neut % (Auto) 52.3 Lymph % (Auto) 34.9 Robertson % (Auto) 6.1 Eos % (Auto) 5.8 Baso % (Auto) 0.7 Neut # (Auto) 4.79 Lymph # (Auto) 3.20 H Robertson # (Auto) 0.60 Eos # (Auto) 0.53 H Baso # (Auto) 0.06 Abs Immat Gran (auto) 0.02 Imm/Tot Granulo (auto) 0.2 Sodium 136 Potassium 4.3 Chloride 104 Carbon Dioxide 27 Anion Gap 5 L BUN 8 Creatinine 0.7 Estimated Creat Clear 164.29 Estimated GFR 111 Glucose 98 Calcium 8.9 C-Reactive Protein 3.3 H Urine Color Yellow Urine Appearance Clear Urine pH 5.5 Ur Specific [place] 1.020 Urine Protein Negative Urine Glucose (UA) Negative Urine Ketones Negative Urine Blood Trace-intact A Urine Nitrite Negative Urine Bilirubin Negative Urine Urobilinogen 0.2 Ur Leukocyte Esterase Negative Urine RBC 0-2 Urine WBC 0-2 Ur Squamous Epith Cells Few Amorphous Sediment Few A Urine Bacteria Few A Urine HCG, Qual Negative Lab Acknowledgement Test Added New Spec Needed A Preliminary micro results at discharge 05/04/25 23:40 Urine Culture - Preliminary Urine,Clean Catch Culture in Progress Imaging CT scan - abdomen: Attestation: I have reviewed the pertinent imaging results. Radiologist's impression: ABDOMEN Liver: Normal contour. Minimal focal fatty infiltration in the left hepatic lobe adjacent to the intersegmental fissure.. Nonspecific oval hypoattenuating finding in the posterior subcapsular aspect of the superior right hepatic lobe measuring 12 mm (series 2; image 23). Further evaluation (MRI) is recommended per ACR white paper guidelines. No intrahepatic biliary ductal dilatation. Patent portal veins. Hepatic veins are not enhanced on this hepatic arterial phase study. Gallbladder: Cholecystectomy. Normal common duct caliber. Pancreas: Normal contour and attenuation. No peripancreatic inflammatory changes. No significant focal lesion. Normal main duct caliber. Spleen: Not enlarged. No significant focal lesion. Patent splenic artery and vein. Adrenal Glands: Symmetrical adrenal glands. No significant focal lesion. Kidneys: Normal bilateral renal attenuation. No significant focal lesion. No nephrolith. No dilatation of the intrarenal collecting systems. No ureteral stone. Nondilated ureters. Patent renal arteries and veins. Gastrointestinal tract: A intraluminal linear metallic density foreign body is seen eccentrically along the medial wall of the proximal ascending colon consistent with an endoscopic clip. There does appear to be non circumferential focal wall thickening at this location (2; 82). Note is otherwise made of pericolic fat stranding adjacent to the colon at the level of the Endoclip (series 2; image 79 and series 4; image 42) which may signify edema or hemorrhage. There is no evidence of active bleeding. No evidence of extraluminal gas or free fluid to indicate perforation. Normal appendix. Vascular: Abdominal aorta and its major proximal branches including the celiac, superior mesenteric, inferior mesenteric, renal, and bilateral common iliac arteries are patent. Patent superior mesenteric vein. Peritoneal Cavity/Retroperitoneum: No ascites. No adenopathy. PELVIS No bladder lesion is identified. Centrally located IUD. 4.8 cm LEFT uterine fibroid. A 2nd fibroid measuring 2.7 cm is seen within the region of the lower uterine segment (2; 138). Differential diagnostic considerations for this finding include a cervical nabothian cyst. 2.1 cm RIGHT ovarian corpus luteum (series 2; image 132). Small volume low density pelvic ascites within physiologic limits of normal. No adenopathy. SKELETON AND BODY WALL Moderate disc degeneration at L5-S1. LOWER THORAX Incidental 16 mm right pericardial cyst (series 2; image 1). IMPRESSION: 1. Endoscopy clip located along the medial wall of the proximal ascending colon. Noncircumferential focal wall thickening of the colon is noted at this location. Correlate with findings at the time of colonoscopy. Note is otherwise made of pericolic fat stranding adjacent to the colon at the level of the clip which may signify edema or hemorrhage. There is no evidence of active bleeding. No evidence of perforation. 2. Incidental nonspecific 12 mm posterior subcapsular hepatic lesion for which further evaluation (MRI) is recommended per ACR white paper guidelines. Discharge Plan Discharge Disposition: Home, Self-Care Date of Admission: 05/04/25 19:24 Attending Provider on Discharge: Anastasiia Ordaz Consulting Providers: Carlos Cisneros Primary Care Provider: Rebecca Salinas Condition: Improved Anticipated Discharge Date/Time: 05/05/25 13:43 Discharge Medications: New oxycodone 5 mg Tablet 5 mg PO Q4H PRN (Reason: Pain) Qty: 25 0RF ondansetron 4 mg tablet,disintegrating 4 mg PO Q8H PRN (Reason: nausea and vomiting) Qty: 10 0RF Continued cholecalciferol (vitamin D3) 25 mcg (1,000 unit) capsule 25 mcg PO QDAY infliximab [Remicade] 100 mg recon soln 500 mg IV Q8W Rx Instructions: 5 mg/kg q8wks loratadine [Claritin] 10 mg tablet 10 mg PO QDAY escitalopram oxalate [Lexapro] 20 mg tablet 20 mg PO QDAY Qty: 90 3RF omeprazole 20 mg capsule,delayed release(DR/EC) 20 mg PO QDAY Qty: 90 3RF fluticasone propionate 50 mcg/actuation spray,suspension 2 spray intranasal QDAY Qty: 16 12RF Rx Instructions: administer into each nostril buspirone 10 mg tablet 10 mg PO BID Discharge Orders: Discharge Order (Routine); Ordered 05/05/25 Ordered By: Anastasiia Ordaz Patient Education: Oxycodone, Rapid Release (By mouth), Abdominal Pain (DC) Additional Instructions: Return to the [facility] during the week 1130 , Med Surg on the weekend) for IV ertapenem infusions. Last dose 05/11/2025. Activity Level: No Restrictions Diet Detail: Gradual diet advancement Follow Up Appointments: Rebecca Salinas MD [Primary Care Provider, Family Practice] Referral Note: post hospital follow up 3-5 days Forms: Patient Belongings, MyHealth Info Instructions
== END 2025-05-05 14:53 | disposition home or self-care (01) ==
LOC: ED 19:01 → MEDSURG 19:24
PROVIDERS: Admitting Provider Family Medicine; Emergency Provider Emergency Medicine Emergency Medical Services; PCP Family Medicine; Visit Provider Family Medicine
DX: R10.31 Right lower quadrant pain (principal); K50.90 Crohn's disease, unspecified, without complications; K76.89 Other specified diseases of liver; Z98.890 Other specified postprocedural states
CPT/HCPCS: 36415; 74177; 80048; 81001; 81003; 81025; 84703; 85025; 86140; 87086; 96365; 96366; 96375; 96376; 99284; 99285; A9270; G0378; J1171; J1335; J2405; J2543; J7030; J7050; Q9967

== ENCOUNTER 2025-06-03 07:03 | Outpatient (CLI) | payer BC, SELFPAY ==
--- NOTE | 2025-06-03 07:15 | CRLHL7_ITS ---
For Patients: As a result of the Century Cures Act, medical imaging exams and procedure reports are released immediately into your electronic medical record. You may view this report before your referring provider. If you have questions, please contact your health care provider. INDICATION: Benign neoplasm COMPARISON: CT 05/04/2025 TECHNIQUE: 2D chan-scale and color Doppler images were acquired of the pelvis using a transabdominal and transvaginal approach. Transvaginal imaging performed to better visualize the endometrial stripe and ovaries. FINDINGS: Sonographic images demonstrate a normal size and smooth outer contour of the uterus. Uterus measures 8.4 cm in length by 6.1 cm in AP diameter by 5.7 cm in transverse dimension. Left-sided lower uterine segment fibroid measures 5.3 x 3.4 x 5.0 cm. Left fundal intramural fibroid measures 2.5 x 2.3 x 2.5 cm. Normal position of an IUD within the endometrial canal. Endometrial lining is not thickened. The right ovary measures 4.0 x 1.5 x 2.9 cm in size and the left ovary measures 3.8 x 2.0 x 2.4 cm. The ovaries demonstrate normal arterial and venous blood flow on color Doppler analysis. There are no suspicious fluid collections within the cul-de-sac. IMPRESSION: Uterine fibroids measure 5.3 x 3.4 x 5.0 cm and 2.5 x 2.3 x 2.5 cm. Dictated by Lc Ontiveros MD @ 06/03/2025 11:58:51 AM (Electronically Signed)
== END 2025-06-03 07:04 | disposition home or self-care (01) ==
PROVIDERS: PCP Family Medicine; Visit Provider Family Medicine
DX: D25.9 Leiomyoma of uterus, unspecified (principal)
CPT/HCPCS: 76830; 76856

== ENCOUNTER 2025-06-09 07:00 | Outpatient (CLI) | payer BC, SELFPAY ==
--- NOTE | 2025-06-09 07:15 | CRLHL7_ITS ---
For Patients: As a result of the Century Cures Act, medical imaging exams and procedure reports are released immediately into your electronic medical record. You may view this report before your referring provider. If you have questions, please contact your health care provider. INDICATION: Liver lesion; further evaluation. COMPARISON: CT abdomen and pelvis with intravenous contrast 05/04/2025. TECHNIQUE: Precontrast T1 and T2 weighted imaging; T2 haste imaging; diffusion-weighted imaging; in and out of phase imaging; postcontrast imaging including subtraction; 23 cc of dotarem contrast was injected IV. Findings: A 4 x 1.6 cm pericardial cyst. A 1.2 cm benign cavernous hemangioma segment 7 of the liver. Mild diffuse fatty infiltration of the liver. No splenic pathology. Pancreas divisum. No evidence of pancreatic ductal dilatation. No peripancreatic inflammatory changes. Status post cholecystectomy. No adrenal pathology. Kidneys are unremarkable. No retroperitoneal lymphadenopathy. No evidence of abdominal ascites. Impression: 1. A 1.2 cm cavernous hemangioma in segment 7 of the liver; no further follow-up is needed. 2. Mild diffuse fatty infiltration of the liver. 3. S/p cholecystectomy. 4. Pancreas divisum. 5. A 4 x 1.6 centimeter pericardial cyst Dictated by Ernst Hoskins MD @ 06/10/2025 8:56:20 AM (Electronically Signed)
== END 2025-06-09 07:01 | disposition home or self-care (01) ==
PROVIDERS: PCP Family Medicine; Visit Provider Family Medicine
DX: K76.9 Liver disease, unspecified (principal); K76.0 Fatty (change of) liver, not elsewhere classified; Q24.8 Other specified congenital malformations of heart
CPT/HCPCS: 74183; A9575

== ENCOUNTER 2025-07-01 09:34 | Outpatient (CLI) | payer BC, SELFPAY | END 2025-07-01 09:35 | disposition home or self-care (01) | LOC: NFLDREF 07-04 19:05 | PROVIDERS: PCP Family Medicine; Referring Provider Family Medicine; Visit Provider Obstetrics & Gynecology | DX: R35.0 Frequency of micturition (principal); R30.0 Dysuria | CPT/HCPCS: 87086; 87491; 87591 ==